=== PATIENT | female | born 2000 | race Caucasian/White ===

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

== ENCOUNTER → 2021-01-03 | Outpatient (CLI) | payer OTHER, SELFPAY ==
[2020-05-25 10:02] VITALS: BMI 22.8
[2021-01-05 20:08] LABS: Chlamydia By Nucleic Acid AMP Negative (Negative)
[2021-01-05 20:21] LABS: Gonococcus By Nucleic Acid AMP Negative (Negative)
== END | disposition home or self-care (01) ==
LOC: LABSPEC 15:31
PROVIDERS: PCP Family Medicine; Visit Provider Obstetrics & Gynecology
DX: Z11.3 Encounter for screening for infections with a predominantly sexual mode of transmission (principal)
CPT/HCPCS: 87491; 87591

== ENCOUNTER → 2021-03-19 10:00 | Outpatient (CLI) | payer OTHER, SELFPAY ==
[2020-05-25 10:02] VITALS: BMI 22.8
== END ==
PROVIDERS: PCP Family Medicine; Referring Provider Internal Medicine Pulmonary Disease; Visit Provider Internal Medicine Pulmonary Disease
DX: G47.10 Hypersomnia, unspecified (principal)
CPT/HCPCS: 95806

== ENCOUNTER 2021-06-19 15:52 | Outpatient (CLI) | payer OTHER, SELFPAY ==
[2021-06-19 17:52] LABS: Amphetamine Urine VISTA NEGATIVE (<1000 ng/mL); Barbiturate Urine VISTA NEGATIVE (< 200 ng/mL); Benzodiazepine Urine VISTA NEGATIVE (< 200 ng/mL); Cocaine Urine VISTA NEGATIVE (< 300 ng/mL); Ecstacy Urine VISTA POSITIVE (< 500 ng/mL); Methadone Urine VISTA NEGATIVE (< 300 ng/mL); PCP Urine VISTA NEGATIVE (< 25 ng/mL); THC Urine VISTA NEGATIVE (< 50 ng/mL); Vista UDS pH Range 6
== END 2021-06-19 23:59 | disposition short-term general hospital (02) ==
LOC: LAB 15:55
PROVIDERS: PCP Family Medicine; Visit Provider Internal Medicine Pulmonary Disease
DX: G47.10 Hypersomnia, unspecified (principal)
CPT/HCPCS: 80307

== ENCOUNTER 2021-06-20 16:54 | Outpatient (CLI) | payer OTHER, SELFPAY ==
[2021-06-20 18:50] LABS: Amphetamine Urine VISTA NEGATIVE (<1000 ng/mL); Barbiturate Urine VISTA NEGATIVE (< 200 ng/mL); Benzodiazepine Urine VISTA NEGATIVE (< 200 ng/mL); Cocaine Urine VISTA NEGATIVE (< 300 ng/mL); Ecstacy Urine VISTA NEGATIVE (< 500 ng/mL); Methadone Urine VISTA NEGATIVE (< 300 ng/mL); PCP Urine VISTA NEGATIVE (< 25 ng/mL); THC Urine VISTA NEGATIVE (< 50 ng/mL); Vista UDS pH Range 7
== END 2021-06-20 23:59 | disposition short-term general hospital (02) ==
LOC: LAB 16:56
PROVIDERS: PCP Family Medicine; Visit Provider Internal Medicine Pulmonary Disease
DX: G47.419 Narcolepsy without cataplexy (principal); G47.10 Hypersomnia, unspecified
CPT/HCPCS: 80307

== ENCOUNTER → 2021-12-11 | Outpatient (CLI) | payer OTHER, SELFPAY ==
[2021-12-11 10:08] LABS: Mucous, Urine 0 SEEN /hpf (<or=2+); Red Blood Cells-Urine 0 SEEN /hpf (0-5)
[2021-12-11 10:12] LABS: Color, Urine Yellow (Yellow); Glucose, Dipstick Normal (Normal); Ketone-Dipstick Negative (Negative); Leukocyte Esterase-Dipstick 100 /ul (Negative); Nitrite-Dipstick Negative (Negative); Occult Blood-Urine Negative /ul (Negative); Protein-Dipstick 15 mg/dl (Negative); Specific Gravity, Urine 1.015 (1.002-1.030); Urine Bilirubin Dipstick Negative (Negative); Urine Clarity Sl. Cloudy (Clear); Urine Urobilinogen 1 mg/dl (Normal)
[2021-12-11 10:30] LABS: Bacteria 2+ /hpf (None Seen); Squamous Epithelial Cells - UA 5-10 SEEN /hpf (5-10); White Blood Cells 5-10 SEEN /hpf (0-5)
== END | disposition home or self-care (01) ==
LOC: LABSPEC 10:04
PROVIDERS: PCP Family Medicine; Referring Provider Physician Assistant Surgical; Visit Provider Physician Assistant Surgical
DX: N39.0 Urinary tract infection, site not specified (principal)
CPT/HCPCS: 81001; 87086; 87088

== ENCOUNTER → 2022-01-09 | Outpatient (CLI) | payer OTHER, SELFPAY ==
--- NOTE | 2022-01-09 14:12 | PFTCOMP ---
COMPLETE PULMONARY FUNCTION TEST INTERPRETATION Brief HPI: Patient is a 21-year-old female, currently under the care of Dr. Topete, who presents to [facility] for complete pulmonary function tests secondary to diagnosis of mild intermittent asthma. Respiratory therapist reports good effort and reproducible results. Interpretation: Forced expiration spirometry shows no large airways obstructive ventilatory defect with an FEV1 of 95% predicted. There is no significant bronchodilator response by strict ATS criteria. Spirograms are of good quality and plateau normally. The respiratory flow volume loop shows a normal pattern. Lung volumes by body plethysmography show a normal total lung capacity at 5.27 L, 91% predicted. All other lung volumes are within normal limits. Diffusion capacity by carbon monoxide is normal at 91% predicted. The airway resistance is normal. Compared to previous pulmonary function tests from 05/16/2020, there has been no significant change. Impression: These pulmonary function tests are within normal limits
== END | disposition home or self-care (01) ==
PROVIDERS: PCP Family Medicine; Referring Provider Internal Medicine Pulmonary Disease; Visit Provider Internal Medicine Pulmonary Disease
DX: J45.20 Mild intermittent asthma, uncomplicated (principal)
CPT/HCPCS: 94060; 94726; 94729

== ENCOUNTER 2022-05-27 05:08 | Day surgery (SDC) | payer OTHER, SELFPAY ==
[2022-05-27 06:24] LABS: Internal QC Validated? YES +Cl - CLEAR BKGD; Pregnancy, Urine Negative Negative
[2022-05-27 06:35] VITALS: BP 103/73; PULSE 70; RESP 18; TEMP 36.7; O2SAT 100; BMI 22.2
[2022-05-27] MEDS: Lactated Ringers 1,000 ML 15 ML IV ×2 (06:45→08:33)
[2022-05-27] MEDS: Scopolamine 1mg/72hr Patch 1 PATCH TD (06:48)
--- NOTE | 2022-05-27 07:00 | PCM.HP.BLA ---
History and Physical Date of Admission: 05/27/22 Chief complaint: Pelvic pain History present illness: 21-year-old arrives for diagnostic laparoscopy, left ovarian cystectomy, possible left oophorectomy for pelvic pain. No medical changes since last seen. All questions answered and consent signed. Obstetric history: G0 Past medical history: None Medications: None Past surgical history: None Allergies: No known drug allergies Family history: Denies history DVT or PE Social history: Denies smoking, alcohol use, drug use Review of systems: Besides above pertinent positives a full review of systems was performed and found to be negative Physical exam: Vitals: Blood pressure 103/73 pulse 70 respiratory rate 18 temperature 98.1 ?F SPO2 100% on room air General: Normal-appearing no acute distress HEENT: Normocephalic/atraumatic no cervical of adenopathy Cardiac/respiratory: No use accessory muscles, nonlabored breathing Abdomen: Soft, nontender, nondistended Extremities: No peripheral edema normal peripheral pulses Psych: Normal affect normal demeanor nonpressured speech Labs: Urine test negative Assessment plan: 21-year-old arrives for diagnostic laparoscopy left ovarian cystectomy possible left oophorectomy for pelvic pain. Patient understands risk of the procedure include but are not limited to visceral or vascular injury, prolonged hospitalization, blood loss need for transfusion, reoperation. Patient stated understanding and wished to proceed. All questions were answered and consent was signed.
--- NOTE | 2022-05-27 08:05 | DCINST_ITS ---
Discharge Instructions Diet Discharge Diet: No restrictions Activity Discharge Activity: Return to Normal Activity, May Drive and May Shower May resume sexual activity in: 4-6 weeks Lifting Restrictions: No lifting over 25 pounds for 2 to 3 weeks Dressing / Incision Call your doctor if your incision/area has: Continuous Slow Oozing and Foul Smelling Discharge Call your doctor if you observe: Fever of 101 or Higher, Shortness of breath and Chest pain Follow Up Care Please Follow Up With: Jericho Clark MD When: 2 weeks postoperatively Test Results: Test results from this visit will be discussed in further detail at your follow- up appointment, if applicable. Discharge Plan Admission Attending Provider: Jericho Clark Primary Care Provider: Shelly Topete Discharge Orders/Prescriptions Prescriptions: No Action bupropion HCl 100 mg tablet 150 mg PO DAILY norethindrone ac-eth estradiol [ ()] 1.5-30 mg-mcg Tablet 1 tab PO DAILY Dexatroamphetamin 30 mg PO/SL DAILY escitalopram oxalate [Lexapro] 20 mg tablet 20 mg PO DAILY Referrals / Follow Up: Shelly Topete MD [Primary Care Provider] - Disposition Disposition (needs filled in before D/C Order can be placed): Home, Self Care
--- NOTE | 2022-05-27 08:06 | PCM.OPRPT ---
Report of Operation Date of Procedure: 05/27/22 Pre-Operative Diagnosis: Pelvic pain Post-Operative Diagnosis: Pelvic Surgery/Procedure Performed:: Diagnostic laparoscopy Description of Surgical Findings:: Surgeon: Jericho Clark MD Anesthesia: General EBL: Minimal Urine output: 50 cc IV fluids: 1000 cc Complications: None Specimen: None Findings: Normal uterus, tubes, and ovaries. Appendix visualized and no pathology noted. Omentum and upper abdomen with no pathology noted Consent: Patient with pelvic pain elects for diagnostic laparoscopy possible left ovarian cystectomy possible left oophorectomy. Patient understands the risks of the procedure include but are not limited to visceral or vascular injury, prolonged hospitalization, blood loss need for transfusion, reoperation. Patient state understanding wish to proceed. All questions were answered and consent was signed. Procedure: Patient was brought back to the OR where general anesthesia was found to be adequate. Patient was prepared and draped in a dorsolithotomy position with yellowfin stirrups. A weighted speculum was placed in the posterior aspect of vagina and cervical dilators were used to dilate the cervix. Uterine manipulator was placed. Varies needle was inserted the umbilicus and water safety test was passed. Abdomen was insufflated. 5 mm midline supraumbilical trocar was inserted under direct visualization. Laparoscope was inserted and above findings were noted. Left lower quadrant 5 mm trocar was inserted under direct visualization. Using atraumatic grasper bilateral fallopian tubes bilateral ovaries were visualized. Bilateral ureters visualized. Posterior cul-de-sac with no pathology noted. Upper abdomen and appendix visualized with above findings noted. Good hemostasis was noted. Abdomen was desufflated and trochars removed under direct visualization. Good hemostasis was noted. Trocar sites were closed in a subcutaneous fashion. Good hemostasis was noted. All counts were correct x2. Patient tolerated procedure well and was brought to recovery in stable condition.
[2022-05-27 08:16] VITALS: BP 103/73; BP 126/62; PULSE 124; RESP 16; TEMP 36.4; O2SAT 100
[2022-05-27 08:30] VITALS: BP 103/73; BP 113/74; PULSE 94; RESP 16; O2SAT 100
[2022-05-27] MEDS: Ketorolac 30 MG/ML Syringe IV (08:32)
[2022-05-27 08:45] VITALS: BP 103/73; BP 111/71; PULSE 79; RESP 14; O2SAT 100
[2022-05-27 09:00] VITALS: BP 103/73; BP 116/76; PULSE 94; RESP 14; TEMP 36.9; O2SAT 100
[2022-05-27] MEDS: Acetaminophen 500 MG Tablet 1000 MG PO (09:37)
[2022-05-27 09:53] VITALS: BP 103/73
== END 2022-05-27 09:56 | disposition home or self-care (01) ==
LOC: SDC 05:09 → AC 05:12
PROVIDERS: Anesthesiology; PCP Family Medicine; Referring Provider Obstetrics & Gynecology; Visit Provider Obstetrics & Gynecology
PROC: (CPT 49320; principal; 2022-05-27 07:15)
DX: R10.2 Pelvic and perineal pain (principal); F41.9 Anxiety disorder, unspecified; F32.9 Major depressive disorder, single episode, unspecified; G47.419 Narcolepsy without cataplexy
CPT/HCPCS: 49320; 00840; 81025; J7120; J2405

== ENCOUNTER → 2022-10-18 | Outpatient (CLI) | payer OTHER, SELFPAY ==
[2022-10-18 11:35] LABS: Erythrocyte Sedimentation Rate 4 mm/hr (0-30)
[2022-10-18 11:58] LABS: CRP < 2.90 mg/L (0.0-3.0); Ferritin 7 ng/mL (8-252); Free T3 2.5 pg/mL (2.18-3.98); LDH 167 U/L (84-246); T4 Free Direct 0.88 ng/dL (0.76-1.46); Thyroid Stim Hormone (TSH) 1.02 uIU/mL (0.358-3.74)
[2022-10-21 13:07] LABS: Anti-Centromere B Ab <0.2 AI (0.0-0.9); Anti-Chromatin <0.2 AI (0.0-0.9); Anti-Jo <0.2 AI (0.0-0.9); Anti-Scleroderma-70 AB <0.2 AI (0.0-0.9); Anti-dsDNA Ab <1 IU/mL (0-9); RNP Ab 0.6 AI (0.0-0.9); SJOGREN'S Anti-SS-A test < 0.2 AI (0.0-0.9); SJOGREN'S Anti-SS-B test < 0.2 AI (0.0-0.9); Smith Ab <0.2 AI (0.0-0.9)
[2022-10-21 14:08] LABS: Endomysial Antibody IgA Negative (Negative); Immunoglobulin A 115 mg/dL (87-352); t-Transglutaminase IgA <2 U/mL (0-3)
[2022-10-24 16:09] LABS: Albumin 3.2 g/dL (2.9-4.4); Alpha-1-Globulins 0.4 g/dL (0.0-0.4); Alpha-2-Globulins 0.8 g/dL (0.4-1.0); Cytoplasmic Ab (C-ANCA) <1:20 titer (Neg:<1:20); Immunoglobulin A 115 mg/dL (87-352); Immunoglobulin E 36 IU/mL (6-495); Immunoglobulin G 957 mg/dL (586-1602); Immunoglobulin M 136 mg/dL (26-217); PROEL- TOTAL PROTEIN 6.5 g/dL (6.0-8.5); Perinuclear Ab (P-ANCA) <1:20 titer (Neg:<1:20)
== END | disposition home or self-care (01) ==
PROVIDERS: PCP Family Medicine; Referring Provider Internal Medicine Gastroenterology; Visit Provider Internal Medicine Gastroenterology
DX: K21.9 Gastro-esophageal reflux disease without esophagitis (principal); K59.00 Constipation, unspecified
CPT/HCPCS: 36415; 82728; 82784; 82785; 83516; 83615; 84165; 84439; 84443; 84481; 85652; 86140; 86225; 86235; 86255; 86256; 86334

== ENCOUNTER → 2022-11-05 | Outpatient (CLI) | payer OTHER, SELFPAY ==
--- NOTE | 2022-11-05 12:18 | RAD_ITS ---
INDICATION: SITZ marker EXAMINATION/TECHNIQUE: X-RAY - XR Abdomen 1 View COMPARISON: FINDINGS: BOWEL GAS PATTERN: Non-obstructive. No bowel or stomach distention. FREE AIR: Not assessed on a single supine view. ORGANOMEGALY: Not seen. CALCIFICATIONS: No abnormal calcifications observed. LOWER CHEST: No acute pathology. BONES AND SOFT TISSUES: No acute pathology. RAD/Abdomen Single View IMPRESSION: Non-obstructive bowel gas pattern. No retained Sitz marker. Electronically Signed: Mae Grullon MD at 12:42 EDT ,
== END | disposition home or self-care (01) ==
LOC: RAD 12:17
PROVIDERS: PCP Family Medicine; Referring Provider Internal Medicine Gastroenterology; Visit Provider Internal Medicine Gastroenterology
DX: K59.00 Constipation, unspecified (principal)
CPT/HCPCS: 74018

== ENCOUNTER → 2022-11-07 | Outpatient (CLI) | payer OTHER, SELFPAY ==
--- NOTE | 2022-11-07 15:25 | RAD_ITS ---
EXAM: XR ABDOMEN, 1 VIEW CLINICAL INDICATION: SITZ second TECHNIQUE: Frontal supine view of the abdomen/pelvis. COMPARISON: 11/05/2022. FINDINGS: LOWER THORAX: No acute pathology. GASTROINTESTINAL TRACT: Unremarkable. Non-obstructive. No bowel or stomach distention. ORGANS: Unremarkable as visualized. No organomegaly. No abnormal calcifications. BONES/JOINTS: No acute pathology. SOFT TISSUES: No acute pathology. OTHER FINDINGS: No SITZ marker identified. RAD/Abdomen Single View IMPRESSION: No SITZ marker identified. No change since previous exam. Electronically Signed: Minh Jeff MD at 5:28 EDT ,
== END | disposition home or self-care (01) ==
LOC: RAD 15:21
PROVIDERS: PCP Family Medicine; Referring Provider Internal Medicine Gastroenterology; Visit Provider Internal Medicine Gastroenterology
DX: K59.00 Constipation, unspecified (principal)
CPT/HCPCS: 74018

== ENCOUNTER → 2022-11-13 | Outpatient (CLI) | payer OTHER, SELFPAY ==
--- NOTE | 2022-11-13 07:36 | NM_ITS ---
CLINICAL: 21-year-old female with history of clinical gastroparesis. SEMI-SOLID PHASE 99m Tc SULFUR COLLOID GASTRIC EMPTYING STUDY COMPARISON: None available FINDINGS: The patient was administered 1.0 mCi of 99m Tc sulfur colloid mixed with oatmeal and consumed per os. Image acquisitions in the anterior-posterior projections were obtained for 60 minutes. There is prompt visualization of the stomach. There is no gastroesophageal reflux identified. The T ? raw data emptying was calculated to be 18.55 minutes, (Normal: 12-56 minutes). NM/Gastric Emptying Study IMPRESSION: 1. NORMAL 99m Tc sulfur colloid semi-solid phase (oatmeal) gastric emptying imaging examination. A. There is normal and preserved semi-solid phase gastric emptying compared to normal controls. (Sharon et al, J Nucl Med Tech 38: 186, 2010). Electronically Signed: Luis Antoine, at 21:07 EDT ,
== END | disposition home or self-care (01) ==
LOC: NM 07:36
PROVIDERS: PCP Family Medicine; Referring Provider Internal Medicine Gastroenterology; Visit Provider Internal Medicine Gastroenterology
DX: K21.9 Gastro-esophageal reflux disease without esophagitis (principal); K59.00 Constipation, unspecified
CPT/HCPCS: 78264; A9541

== ENCOUNTER → 2024-08-19 | Outpatient (CLI) | payer OTHER, SELFPAY | END | disposition home or self-care (01) | PROVIDERS: PCP Family Medicine; Referring Provider Physician Assistant Surgical; Visit Provider Physician Assistant Surgical | DX: J02.9 Acute pharyngitis, unspecified (principal) | CPT/HCPCS: 87081 ==

== ENCOUNTER 2025-01-01 20:16 | Emergency (ER) | payer OTHER, SELFPAY ==
[2025-01-01 20:17] VITALS: BP 120/79; PULSE 88; RESP 14; TEMP 37; O2SAT 100; BMI 24.9
--- OUTSIDE RECORDS SUMMARY | 2025-01-01 21:00 | XMS RPT_ITS | CCD ---
Author Organization [facility] Care Team Providers Care Car Spotter Name Role Phone Selena Lau LPN Unavailable Unavailab Yvonne Mayen LPN Unavailable Unavailable Jaime Rodríguez Unavailable [phone] Selena Lua LPN Unavailable Unavailab KELLI Rodriguez Attending Unavailable STRONG, VERNON H Referring Unavailable STRONG, VERNON H Primary Care Unavailable Selena Lau LPN Unavailable UnavailVernon Zavaleta MD Primary Care Provider Dr. Shelly Topete Primary Care Provider Dr. Shelly Topete Referring Provider [phone] MARIA M Quezada Attending Provider Dr. Fernando Angel V Referring Provider [phone] Dr. Fernando Angel V Other Provider Dr. Dario Doss Attending Provider [phone] FRANCHESKA BRIGGS Attending Unavailable STRONG, VERNON H Primary Care Unavailable BRIGGSFRANCHESKA VARGAS Attending Unavailable STRONG, VERNON H Primary Care Unavailable FRANCHESKA BRIGGS Attending Unavailable STRONG, VERNON H Primary Care Unavailable STRONG, VERNON H Primary Care Unavailable FRANCHESKA BRIGGS Attending Unavailable STRONG, VERNON H Primary Care Unavailable Dr. Shelly Topete Primary Care Provider [phone] Dr. Shelly Topete Referring Provider [phone] MARIA M Quezada Attending Provider Reina, Dr. Rocha Attending Provider GIUSEPPE GONZALEZ MD Primary Care Physician XIOMARA MADRIGALN-GLORIA, SARAHY Attending Unavail able GIUSEPPE GONZALEZ MD Primary Care Unavailable Ignacio Quezada Attending Unavailable Ignacio Quezada Referring Unavailable Shelly Topete Primary Care Unavailable Yoselyn Shelly Referring Unavailable Ignacio Quezada Attending Unavailable Yoselyn Shelly Primary Care Unavailable Yoselyn Shelly Referring Unavailable Aj Huang Attending Unavailable [facility] Shelly Primary Care Unavailable [facility] Shelly Referring Unavailable FriendAj Attending [facility]available [facility] Unavailable Yoselyn YANES, Dr. Bravo Primary Care Provider Dr. Shelly Topete MD Referring Provider [phone] Reina DODr. Rocha Attending Provider Ignaico Quezada Attending Provider Ignacio Quezada Referring Provider [phone] Allergies Allergy Classification Reported Allergen(s) Allergy Type Date of Onset Reaction(s) Facility (4 sources) Seasonal allergy; Translations: [SEASONAL ALLERGIES] Allergy to substance 5 Other: See Comments [facility] Medications Current Medications Medication Drug Class(es) Dates Sig (Normalized) Sig (Original) 24 hr buPROPion hydrochloride 150 mg extended release oral tablet (5 sources) Aminoketone Start: 07-21-2023 take 1 tablet by mouth every hour, then take 1 tablet by mouth every twenty-four hours buPROPion 150 mg/24 hours (XL) oral tablet, extended release Dose : 150 mg = 1 tab(s), Oral, q24h, # 30 tab(s), 0 Refill(s) Start Date: 07/21/23 Status: Ordered Start: 01-03-2020 End: 06-08-2024 Bupropion Hcl 100 mg tablet Discontinued 150 mg PO DAILY January 03, 2020 12:00am June 08, 2024 9:42am Start: 01-03-2020 take 150 mg by mouth once daily Bupropion Hcl Active 150 MG PO DAILY January 03, 2020 12:00am Start: 01-03-2020 take 100 mg by mouth twice daily Bupropion Hcl Active 100 MG PO TWICE A DAY January 03, 2020 12:00am dextroamphetamine sulfate 15 mg extended release oral capsule (1 source) Central Nervous System Stimulant Start: 07-21-2023 dextroamphetamine 15 mg oral capsule, extended release Dose : 15 mg = 1 cap(s), Oral, qAM, 0 Refill(s) Start Date: 07/21/23 Status: Ordered escitalopram 20 mg oral tablet (8 sources) Serotonin Reuptake Inhibitor Start: 07-06-2021 End: 06-08-2024 escitalopram 20 mg oral tablet Dose : 20 mg = 1 tab(s), Oral, Daily, 0 Refill(s) Start Date: 07/21/23 Status: Ordered Comment on above: Take 20 mg by mouth once daily. ethinyl estradiol 0.03 mg / ferrous fumarate 75 mg / norethindrone 1.5 mg oral tablet (2 sources) Estrogen Start: 07-21-2023 take 1 tablet by mouth once daily .11/05 oral tablet Dose = 1 tab(s), Oral, qDay, # 84 tab(s), 0 Refill(s) Start Date: 07/21/23 Status: Ordered Start: 08-10-2018 Norethindrone- E.Estradiol-Iron Active 1 EACH PO DAILY August 10, 2018 1:00am lactulose 667 mg/ml oral solution (1 source) Osmotic Laxative Start: 07-06-2021 take 1 mL by mouth once daily Lactulose Active 15 ML PO DAILY July 06, 2021 1:00am metroNIDAZOLE 500 mg oral tablet (1 source) Nitroimidazole Antimicrobial Start: 07-22-2023 End: 07-29-2023 metroNIDAZOLE 500 mg oral tablet Dose : 500 mg = 1 tab(s), Oral, BID, X 7 day(s), # 14 tab(s), 0 Refill(s), 07/29/23 4:46:00 PM EST, [facility]acy: [id number], Bacterial vaginitis, 174, cm, 07/21/23 8:31:00 EST, Height, 64.8, kg, 07/21/23 8:31:00 EST, Dosing Weight Start Date: 07/22/23 Stop Date: 07/29/23 Status: Ordered modafinil 100 mg oral tablet (1 source) Sympathomimetic-lik e Agent Start: 07-06-2021 take 100 mg by mouth once daily Modafinil Active 100 MG PO DAILY July 06, 2021 1:00am [place] (Nk) (1 source) Start: 08-19-2024 [place] (Nk) Active August 19, 2024 12:00am phenazopyridine hydrochloride 100 mg oral tablet (1 source) Start: 12-11-2021 take 1 tablet by mouth three times daily at mealtime Phenazopyridine (Pyridium) 100 mg tablet Active 100 MG PO THREE TIMES A DAY December 11, 2021 12:00am administer with a full glass of water after each meal Completed/Discontinued Medications Medication Drug Class(es) Dates Sig (Normalized) Sig (Original) [id number] 200 actuat albuterol 0.09 mg/actuat metered dose inhaler (4 sources) beta2-Adrenergic Agonist Start: 06-14-2019 take 2 puff(s) by inhalation every four hours as needed for wheezing albuterol HFA (PROAIR HFA) 90 mcg/actuation inhaler Indications: Mild persistent asthma without complication Inhale 2 Puffs as instructed every 4 hours as needed for Wheezing/Shortness of Breath. 2 Inhaler 0 06/14/2019 Active Start: 09-28-2015 take 1 puff(s) by in halation every four hours as needed Albuterol Sulfate Active 1 - 2 PUFF INHALATION EVERY 4 HOURS NEEDED September 28, 2015 12:00am Comment on above: Inhale 2 Puffs as in structed every 4 hours as needed for Wheezing/Shortness of Breath. amitriptyline hydrochloride 25 mg oral tablet (4 sources) Tricyclic Antidepressant Start : 09-27 End: 07-15 take 1 tablet by mouth at bedtime Amitriptyline 25 MG tablet Discontinued 25 mg PO AT BEDTIME September 28, 2015 12:00am July 15, 2017 2:27pm amoxicillin 500 mg oral tablet (4 sources) Penicillin-class Antibacterial Start : 05-30 End: 06-09 take 1 tablet by mouth twice daily Amoxicillin 500 mg tablet Discontinued 500 mg PO TWICE A DAY 28 03May 30, 2019 1:00am June 08, 2019 1:00am June 09, 2019 1:07am amoxicillin 875 mg / clavulanate 125 mg oral tablet (1 source) Penicillin-class Antibacterial Start : 06-16 End: 06-08 Amoxicillin-Pot Clavulanate 875-125 mg tablet Discontinued 1 {tbl} PO TWICE A DAY June 16, 2023 1:00am June 08, 2024 9:42am cephalexin 500 mg oral capsule (4 sources) Cephalosporin Antibacterial Start : 07-25 End: 07-15 take 1 capsule by mouth every six hours Cephalexin 500 MG capsule Discontinued 500 mg PO EVERY 6 HOURS FOR 5 DAYS July 25, 2016 1:00am July 15, 2017 2:27pm Dexatroamphetamin (3 sources) Start : 05-20 End: 06-08 take 30 mg by mouth once daily Dexatroamphetamin Discontinued 30 mg SL/PO DAILY May 20, 2022 1:00am June 08, 2024 9:42am Start: 05-20-2022 take 30 mg by mouth once daily Dexatroamphetamin Active 30 MG SL/PO DAILY May 20, 2022 1:00am Start: 05-20-2022 take 30 mg by mouth once daily Dexatroamphetamin Active 30 MG SL/PO DAILY May 20, 2022 12:00am dicyclomine hydrochloride 10 mg oral capsule (1 source) Anticholinergic Start: 08-13-2023 End: 06-08-2024 take 1 capsule by mouth twice daily as needed for pain Dicyclomine 10 mg capsule Discontinued 10 mg PO TWICE A DAY as needed for abdominal pain August 13, 2023 1:00am June 08, 2024 9:42am ethinyl estradiol 0.03 mg / norethindrone acetate 1.5 mg oral tablet (6 sources) Estrogen Start: 05-20-2022 End: 06-08-2024 Norethindrone Ac-Eth Estradiol (Junel .11/05 (21)) 1.5-30 mg-mcg Tablet Discontinued 1 {tbl} PO DAILY May 20, 2022 1:00am June 08, 2024 9:42am Start: 05-25-2021 take 1 tablet by halima once daily Norethindrone Acet-Ethinyl Est (MICROGESTIN ) 1.5-30 mg-mcg Indications: Surveillance for control, oral contraceptives TAKE 1 TABLET BY MOUTH ONCE DAILY DIRECTED 84 tablet 0 05/25/2021 Active Comment on above: TAKE 1 TABLET BY HALIMA ONCE DAILY DIRECTED ferrous sulfate 325 mg oral tablet (4 sources) Start: 01-03-20 End: 07-06-19 take 1 tablet by mouth once daily Ferrous Sulfate 325 mg (65 mg iron) tablet Discontinued 325 mg PO DAILY January 03, 2020 12:00am July 06, 2021 5:05pm fluconazole 150 mg oral tablet (1 source) Azole Antifungal Start: 07-22-19 End: 07-23-19 Diflucan 150 mg oral tablet Dose : 150 mg = 1 tab(s), Oral, qDay, # 2 tab(s), 0 Refill(s), [facility]acy: [id number], Vaginal candidosis, 174, cm, 07/21/23 8:31:00 EST, Height, 64.8, kg, 07/21/23 8:31:00 EST, Dosing Weight Start Date: 07/22/23 Stop Date: 07/23/23 Status: Ordered 120 actuat fluticasone propionate 0.11 mg/actuat metered dose inhaler (11 sources) Corticosteroid Start: 08-11-19 End: 07-06-19 Fluticasone Propionate 1 INHALER inhaler Discontinued 2 NMA INHALATION TWICE A DAY August 10, 2018 1:00am July 06, 2021 5:06pm Start: 08-10-2018 End: 07-06-2021 take 1 puff(s) by inhalation twice daily Fluticasone Propionate Discontinued 2 PUFF INHALATION TWICE A DAY August 10, 2018 1:00am July 06, 2021 5:06pm Start: 07-03-2018 take 1 puff(s) by in halation twice daily fluticasone (FLOVENT HFA) 110 mcg/actuation inhaler Indications: Mild persistent asthma without complication Inhale 1 Puff as instructed twice daily. Use the spacer as directed. 1 Inhaler 11 07/03/2018 Active Start: 09-28-2015 End: 07-15-2017 Fluticasone Propionate 1 INH ALER inhaler Discontinued 1 NMA INHALATION TWICE A DAY September 28, 2015 12:00am July 15, 2017 2:27pm Start: 09-28-2015 End: 07-15-2017 take 1 puff(s) by inhalation twice daily Fluticasone Propionate Discontinued 1 PUFF INHALATION TWICE A DAY September 28, 2015 12:00am July 15, 2017 2:27pm Comment on above: Inhale 1 Puff as ins tructed twice daily. Use the spacer as directed. linaclotide 0.145 mg oral capsule (1 source) Guanylate Cyclase-C Agonist Start : 11-19 End: 08-12 take 1 capsule by mouth once daily Linaclotide (Linzess) 145 mcg capsule Discontinued 145 ug PO DAILY November 19, 2022 12:00am August 13, 2023 5:03pm loratadine 10 mg oral tablet (4 sources) Start : 09-27 End: 07-15 take 1 tablet by mouth once daily Loratadine 10 MG tablet Discontinued 10 mg PO DAILY September 28, 2015 12:00am July 15, 2017 2:27pm lubiprostone 0.008 mg oral capsule (3 sources) Chloride Channel Activator Start : 08-12 End: 06-08 take 1 capsule by mouth twice daily Lubiprostone (Amitiza) 8 mcg capsule Discontinued 8 ug PO TWICE A DAY January 30, 2024 9:24am June 08, 2024 9:42am methylPREDNISolone 4 mg oral tablet (1 source) Corticosteroid Start : 06-16 End: 06-08 take 1 tablet by mouth once Methylprednisolone (Medrol (Bryce)) 4 mg tablets,dose pack Discontinued 0 PO per package directions June 16, 2023 1:00am June 08, 2024 9:42am PO PER PKG DIR nitrofurantoin, macrocrystals 25 mg / nitrofurantoin, monohydrate 75 mg oral capsule (8 sources) Nitrofuran Antibacterial Start : 12-11 End: 12-18 take 1 capsule by mouth every twelve hours at mealtime Nitrofurantoin Monohyd/M-Cryst 100 mg capsule Discontinued 1 NMA PO Q12H 14 December 11, 2021 12:00am December 17, 2021 12:00am December 18, 2021 12:03am administer with a meal/food; swallow whole; do not open, crush, dissolve , or chew Start: 03-02-2018 End: 03-09-2018 take 1 capsule by mouth every twelve hours at mealtime Nitrofurantoin Monohyd/M-Cryst 100 mg capsule Discontinued 1 NMA PO Q12H 14 March 02, 2018 12:00am March 08, 2018 12:00am March 09, 2018 12:10am administer with a meal/food; swallow whole; do not open, crush, dissolve , or chew oseltamivir 75 mg oral capsule (4 sources) Neuraminidase Inhibitor Start: 07-15-2017 End: 07-20-2017 take 1 capsule by mouth twice daily Oseltamivir (Tamiflu) 75 mg capsule Discontinued 75 mg PO TWICE A DAY 10 July 15, 2017 1:00am July 19, 2017 1:00am July 20, 2017 1:06am polyethylene glycol [id number] [id number] mg / potassium chloride 2970 mg / sodium bicarbonate 6740 mg / sodium chloride 5860 mg / sodium sulfate 87159 mg powder for oral solution (1 source) Osmotic Laxative Start: 08-13-2023 End: 06-08-2024 Peg 3350-Electrolytes (Golytely) 236-22.74-6.74 -5.86 gram recon soln Discontinued 240 mL PO Q10M 4000 August 13, 2023 1:00am June 08, 2024 9:42am until fecal effluent is clear predniSONE 10 mg oral tablet (2 sources) Corticosteroid Start: 01-13-2017 End: 01-25-2017 PREDNISONE 10 MG TABS 4 tablets daily for 3 days, then 3 tablest daily for 3 days, then 2 tablets daily for 3 days, then 1 tablet daily for 3 days. PREDNISONE [id number] Ignacio FRANZ rizatriptan 10 mg oral tablet (3 sources) Serotonin-1b and Serotonin-1d Receptor Agonist Start: 06-14-2019 take 2 tablets by mouth every two hours, then take 4 tablets by mouth once daily, then take 2 tablets by mouth once daily, then take 8 tablets by mouth every month rizatriptan (MAXALT) 10 mg tablet For a severe migraine take Maxalt 10 mg plus Aleve 220 mg by mouth. If no better in 2 hours take a second Maxalt 10 mg plus one extra strength Tylenol. Maxalt: May take 2 doses of Maxalt in one day, 4 doses and 2 consecutive days, no more than 8 doses per month. 10 tablet 0 06/14/2019 Active Comment on above: For a severe migrain e take Maxalt 10 mg plus Aleve 220 mg by mouth. If no better in 2 hours take a second Maxalt 10 mg plus one extra strength Tylenol. Maxalt: May take 2 doses of Maxalt in one day, 4 doses and 2 consecutive days, no more than 8 doses per month. Problems Active Problems Problem Classification Problem Date Documented Da te Episodic/Chronic Allergic reactions (2 sources) Atopic dermatitis; Translations: [Atopic dermatitis, unspecified] Onset: 7 01-13-2017 Chronic Asthma (7 sources) Mild persistent asthma; Translations: [Mild persistent asthma, uncomplicated] Onset: 3 05-27-2013 Chronic Esophageal disorders (4 sources) Gastroesophageal reflux disease; Translations: [Gastro-esophageal reflux disease without esophagitis] 10-18-2022 Chronic Esophageal disorders (1 source) Esophageal disorders; Translations: [Gastro-esophageal reflux disease with esophagitis, without bleeding] Onset: 4 Headache; including migraine (3 sources) Transformed migraine; Translations: [Chronic migraine without aura, not intractable, without status migrainosus] Onset: 6 09-08-2015 Chronic Immunizations and screening for infectious disease (5 sources) Contact with and (suspected) exposure to other viral communicable diseases; Translations: [Contact with or suspected exposure to other viral communicable disease] Onset: 4 10-15-2022 Episodic Influenza (4 sources) Influenza due to Influenza A virus; Translations: [Influenza due to other identified influenza virus with other respiratory manifestations] 01-03-2020 Episodic Lymphadenitis (1 source) Lymphadenitis; Translations: [Nonspecific lymphadenitis, unspecified] 12-31-2022 Episodic Miscellaneous mental health disorders (7 sources) Psychologic dyspareunia; Translations: [Dyspareunia not due to a substance or known physiological condition] Onset: 2 Chronic Mood disorders (3 sources) Moderate major depression, single episode; Translations: [Major depressive disorder, single episode, moderate] Onset: 9 09-21-2018 Chronic Other connective tissue disease (6 sources) Increased muscle tone; Translations: [Other specified disorders of muscle] Onset: 2 Episodic Other gastrointestinal disorders (3 sources) Constipation; Translations: [Constipation, unspecified] 10-18-2022 Episodic Other gastrointestinal disorders (1 source) Constipation, unspecified; Translations: [Constipation, unspecified] 10-18-2022 Episodic Other screening for suspected conditions (not mental disorders or infectious disease) (4 sources) Encounter for screening for malignant neoplasm of cervix; Translations: [Encounter for other screening for malignant neoplasm of breast] Onset: 4 Episodic Other upper respiratory infections (18 sources) Upper respiratory infection; Translations: [Acute upper respiratory infection, unspecified] Onset: 7 07-16-2016 Episodic Sprains and strains (9 sources) Unspecified sprain of left wrist, initial encounter; Translations: [Sprain of wrist] Onset: 7 11-27-2016 Episodic Superficial injury; contusion (4 sources) Contusion of left wrist; Translations: [Contusion of left wrist, initial encounter] 10-25-2015 Episodic Urinary tract infections (13 sources) Urinary tract infectious disease; Translations: [Urinary tract infection, site not specified] Episodic Past or Other Problems Problem Classification Problem Date Documented Da te Episodic/Chronic Allergic reactions (2 sources) Contact dermatitis due to poison no; Translations: [Allergic contact dermatitis due to plants, except food] Onset: 01-13-2017 01-13-2017 Episodic Fracture of upper limb (5 sources) Nondisplaced fracture of distal phalanx of right middle finger, initial encounter for closed fracture; Translations: [Nondisplaced fracture of distal phalanx of right middle finger, initial encounter for closed fracture] Onset: 07-29-2016 08-12-2016 Episodic Other connective tissue disease (5 sources) Pain in finger; Translations: [Pain in right finger(s)] Onset: 07-29-2016 08-12-2016 Episodic Other connective tissue disease (1 source) Other specified disorders of muscle; Translations: [Muscle tightness] Onset: 11-20-2021 Episodic Other gastrointestinal disorders (1 source) Slow transit constipation; Translations: [Slow transit constipation] Onset: 10-14-2023 Episodic Other upper respiratory disease (5 sources) Pain in throat; Translations: [Acute pharyngitis, unspecified] Onset: 07-16-2016 07-16-2016 Episodic Unclassified (5 sources) Pain; Translations: [Pain, unspecified] Onset: 11-27-2016 11-27-2016 Episodic Results Test Name Value Interpretation Reference Range Facility Culture, R/O Strep Aon 08-21 CUSTREPA No Group A Beta Streptococcus isolated. Normal [facility] Comment on above: Performed By: #### M 100.010 #### [facility] [address] [place], [address] Group A Strep cultureOrdered By: Ignacio Tomas on 08-19-2024 S. pyogenes Ag Ql (Throat) No Group A Be ta Streptococcus isolated. [facility] S. pyogenes Ag IA.rapid Ql ( Throat)Ordered By: Ignacio Tomas on 08-19-2024 S. pyogenes Ag IA Ql (Unsp spec) Negative [facility] Visit Reporton 0 08-19-2024 Urgent Care Visit Report [facility] [address] [facility], [address] [place] [address] OFFICE VISIT Date of Service: 08/19/24 MR#: [id number] Acct: [id number] Name: SOSA OLIVER Rep #: [id number] : 2000 Provider: MARIA M Patel Age/Sex: 23/F Location: [facility] Status: Signed Intake Vital Signs 06/16/23 16:14 08/19/24 07:20 Height 5 ft 7 in BP 104/62 Blood Pressure Location Lt brachial Position Sitting Respiration 14 Pulse 79 Pulse Source NIBP Temp 98.0 F Temp Source Oral Pulse Oximetry (%) 99 Oxygen Delivery Method room air Intake Visit Reasons: CONCERN FOR STREP THROAT Chief Complaint: sore throat, YOUNG Visitor Services Technician Required: No Is patient in pain?: Yes Allergies No Known Allergies Allergy (Verified 08/19/24 07:20) Medications ???Medication ???Instructions ???Recorded ???Confirmed ???Type NK 08/19/24 08/19/24 History Is last menstrual period known: No Post menopausal: No Patient : No Have you fallen in the past year?: No Nurse's Note: sore throat, YOUNG since last noc. states mother told her tonsils were enlarged with "pus pockets". concern for strep. denies fever, cough, congestion PFSH Medical History Anemia Anxiety Asthma Depression Influenza A Loss of consciousness Migraine headache Narcolepsy Non-smoker Pelvic pain Pharyngitis Postauricular lymphadenitis URI (upper respiratory infection) Urinary tract infection Wears glasses Surgical History H/O laparoscopy No pertinent past surgical history Family History Other No pertinent family history Social History Smoking Status: Never smoker alcohol intake: never HPI HPI Chief Complaint: sore throat, YOUNG Details: SOSA OLIVER, is a 23 F who presents to the office today for complaint sore throat and headache starting last night. Patient states she has a history of strep and is requesting a strep test in the office as well as [place] if negative. She denies fever, chills, sweats. No hemoptysis, shortness of breath appropriately. No loss of taste or smell. No other associated symptoms or alleviating/aggravatin g factors. ROS Const Constitutional: No other (As above) Exam Const General: cooperative and healthy appearing [facility] Head: normal to inspection Ears: hearing grossly normal bilaterally, TM's normal bilaterally and EAC's normal Nose: external nose normal and nasal discharge clear Mouth: oral mucosae normal Throat: abnormal tonsil bilaterally Resp Effort Inspection: normal respiratory effort Auscultation: Bilateral: Clear to Auscultation Cardio Palpation: normal PMI Rate: regular rate Rhythm: regular rhythm Neuro General: patient alert and CN's II-XI intact bilaterally Psych Appearance: grossly normal Mental Status: mental status grossly normal Results POC Amy Rapid Strep POC Amy Rapid Strep Negative Last Edit by Ramonita Echavarria on 08/19/24 07:34 Coding Level of Care Code Off vis,est,level 3 Diagnoses Acute pharyngitis J02.9 Assessment and Plan Assessment and Plan (1) Acute pharyngitis: Status: Acute Orders: Orders POC Amy Rapid Strep A Today Culture, R/O Strep A Today J02.9 - Acute pharyngitis, unspecified Plan Patient tested negative for strep in the office today. Swab sent for rule out strep. Encouraged to get plenty of rest, drink lots of clear liquids, and use Tylenol or Ibuprofen (unless contraindicated) for fever and comfort. Patient also educated on other symptomatic management techniques. To be seen in 7-10 days if no improvement; sooner if worsening of symptoms. Clinical Quality Measures Falls Risk Screening/Assistive Devices Have you fallen in the past year?: No 08/19/24 0756 Date Ignacio Valerio Signature: Date (if applicable) CC: Normal [facility] Visit Repor ton 06-08-2024 Gastroenterology Visit Report [facility] [address] [place] [address] OFFICE VISIT Date of Service: 06/08/24 MR#: [id number] Acct: [id number] Name: SOSA OLIVER Rep #: [id number] : 2000 Provider: Aj Huang DO Age/Sex: 23/F Location: [facility] Status: Signed Intake Vital Signs 06/16/23 16:14 Height 5 ft 7 in Weight: 140 lb BMI 21.9 BP 110/76 Blood Pressure Location Lt brachial Position Sitting Respiration 16 Pulse 86 Pulse Source Monitor Temp 98.0 F Temp Source Temporal Pulse Oximetry (%) 98 Oxygen Delivery Method room air Intake Visit Reasons: 6 M FU Allergies No Known Allergies Allergy (Verified 06/16/23 16:15) [facility] Medical History Anemia Anxiety Asthma Depression Influenza A Loss of consciousness Migraine headache Narcolepsy Non-smoker Pelvic pain Pharyngitis Postauricular lymphadenitis URI (upper respiratory infection) Urinary tract infection Wears glasses Surgical History H/O laparoscopy No pertinent past surgical history Family History Other No pertinent family history Social History Smoking Status: Never smoker alcohol intake: never HPI HPI Details: SOSA OLIVER, is a 23 F who presents to the office today for follow up. KUB 5.31.18???moderate colonic fecal burden.?Laparoscopy, pelvic diagnostic 05.27.22???without acute/chronic finding??? *BGI established 10.18.22 with lower abdominal/pelvic pain/cramping; has sensation that she can feel fecal material moving through her large bowel. BM pattern 1-2/week with harder stools. Stool softener/MiraLAX have been ineffective. Reflux in the evening with positive response to TUMS.?Biochemical 10.18.22???ESR, CRP, LDH, T3, T4, TSH, GAME, celiac, DEEPTI, ANCA, ALEXANDR comp without pertinent abnormality? Ferritin L7?SITZ ???Day 3 without visualized rings?GET 6.7.23???18.55 minutes (12-56)??? Contact 11.19.22 with results???Start Linzess 145mcg.?OV 03.18. Pt continues to have irregular bowels. Has started to have liquid stools a few times a month on Linzess. Has a BM every other day and has to strain. OV 5..24 pt reports that she is taking Amitiza 8mcg once a day and dicyclomine as needed for her abdominal pain, but is unsure if it is helpful. Pt reports that 3-4 times a month she will have unbearable abdominal pain and is unsure of triggers. pt states that every week and a half she will have a bm, sometimes small and soft; and other times it is a hard stool. Pt states that there is occasionally blood in her stool from hemorrhoids and straining. OV 06.08.24 pt reports that in October she began exercising and changed her diet. Then in February she stopped talking all of her medications. Pt reports she was having a daily soft bm until this week, has not had a bm. Pt reports it could be due to diet change this week with the holidays. Pt reports HB in the evening, reports TUMs are effective. ROS Const Constitutional: Positive for fatigue and weight change (weight gain); No fever(s) ENT ENT: No difficulty swallowing Gastro GI: Positive for abdominal pain, bloating, constipation, diarrhea, heartburn and excessive flatus; No belching, change in bowel habits, change in stool character, coffee ground emesis, cramping, difficulty swallowing, feeling full early, incontinent of stools, Vomiting blood/hematemesis, Blood in stool, loose stools, Black,tarry stools, nausea/dyspepsia, pain with swallowing, vomiting or other Musc Musculoskeletal: No joint pain Skin Skin: No yellowing of the eye or itchy eyes Psych Psychiatric: Positive for anxiety and Positive for depression Endo Endocrine: Positive for fatigue and weight change (weight gain) Aller/Imm Allergy/Immunologic: No itchy eyes Mauro/Lymp Hematologic/Lymphatic: No easy bleeding or easy bruising Exam Const General: cooperative, healthy appearing and no acute distress Nutritional Appearance: average body habitus Orientation: alert, awake and oriented x3 [facility] Head: normal to inspection Ears: hearing grossly normal bilaterally, external ears normal, TM's normal bilaterally and EAC's normal Nose: external nose normal, nares normal, septum normal and no nasal discharge Face and sinus: normal facial exam, sinuses nontender and face symmetric Mouth: oral mucosae normal, lip normal, tongue normal and oropharynx normal (more content not included)... Normal [facility] Gastro[facility]ology Visit Repor ton 10-13-2023 Gastroenterology Visit Report [facility] Gastroenterology [address] [place] [address] OFFICE VISIT Date of Service: 10/13/23 MR#: [id number] Acct: [id number] Name: SOSA OLIVER Rep #: [id number] : 2000 Provider: Aj Huang DO Age/Sex: 22/F Location: [facility] Status: Signed Intake Vital Signs 05/27/22 06:35 06/16/23 16:14 Height 5 ft 7 in 5 ft 7 in Intake Visit Reasons: 6 MO FU Chief Complaint: COUGH Allergies No Known Allergies Allergy (Verified 06/16/23 16:15) [facility] Medical History Anemia Anxiety Asthma Depression Influenza A Loss of consciousness Migraine headache Narcolepsy Non-smoker Pelvic pain Pharyngitis Postauricular lymphadenitis URI (upper respiratory infection) Urinary tract infection Wears glasses Surgical History H/O laparoscopy No pertinent past surgical history Family History Other No pertinent family history Social History Smoking Status: Never smoker alcohol intake: never HPI HPI Chief Complaint: COUGH Details: SOSA OLIVER, is a 22 F who presents to the office today for follow-up. KUB 5.31.18???moderate colonic fecal burden.?Laparoscopy, pelvic diagnostic 05.27.22???without acute/chronic finding??? *BGI established 10.18.22 with lower abdominal/pelvic pain/cramping; has sensation that she can feel fecal material moving through her large bowel. BM pattern 1-2/week with harder stools. Stool softener/MiraLAX have been ineffective. Reflux in the evening with positive response to TUMS.?Biochemical 10.18.22???ESR, CRP, LDH, T3, T4, TSH, GAME, celiac, DEEPTI, ANCA, ALEXANDR comp without pertinent abnormality? Ferritin L7?SITZ ???Day 3 without visualized rings?GET 11.13.22???18.55 minutes (12-56)??? Contact 11.19.22 with results???Start Linzess 145mcg.?OV 03.18.23 Pt continues to have irregular bowels. Has started to have liquid stools a few times a month on Linzess. Has a BM every other day and has to strain. OV 10.13.23 pt reports that she is taking Amitiza 8mcg once a day and dicyclomine as needed for her abdominal pain, but is unsure if it is helpful. Pt reports that 3-4 times a month she will have unbearable abdominal pain and is unsure of triggers. pt states that every week and a half she will have a bm, sometimes small and soft; and other times it is a hard stool. Pt states that there is occasionally blood in her stool from hemorrhoids and straining. ROS Const Constitutional: Positive for fatigue; No fever(s) or weight change ENT ENT: No difficulty swallowing Gastro GI: Positive for abdominal pain, bloating, constipation, heartburn, excessive flatus and nausea/dyspepsia; No belching, change in bowel habits, change in stool character, coffee ground emesis, cramping, diarrhea, difficulty swallowing, feeling full early, incontinent of stools, Vomiting blood/hematemesis, Blood in stool, loose stools, Black,tarry stools, pain with swallowing, vomiting or other Musc Musculoskeletal: No joint pain Skin Skin: No yellowing of the eye or itchy eyes Psych Psychiatric: Positive for anxiety and No depression Endo Endocrine: Positive for fatigue; No weight change Aller/Imm Allergy/Immunologic: No itchy eyes Mauro/Lymp Hematologic/Lymphatic: No easy bleeding or easy bruising Exam Const General: cooperative, healthy appearing and no acute distress Nutritional Appearance: average body habitus Orientation: alert, awake and oriented x3 [facility] Head: normal to inspection Ears: hearing grossly normal bilaterally, external ears normal, TM's normal bilaterally and EAC's normal Nose: external nose normal, nares normal, septum normal and no nasal discharge Face and sinus: normal facial exam, sinuses nontender and face symmetric Mouth: oral mucosae normal, lip normal, tongue normal and oropharynx normal Throat: posterior oropharynx normal, tonsils normal, uvula midline and no postnasal drainage Eyes General: appearance normal, both eyes and all related structures Neck Neck: normal visual inspection, full ROM, no meningeal signs, supple and lymphadenopathy (R postauricular lymph node of 1 cm diameter; fluctuant/ tender) Neck mass: No Thyroid: thyroid normal Chest Chest palpation inspection: normal inspection of the chest Resp Effort Inspection: normal respiratory effort and able to speak in complete sentences Auscultation: Bilateral: Clear to Au (more content not included)... Normal [facility] Cytology Reporton 2023 [facility] Cytology Report . Pathology Reports Accession: Collected Date/Time: Received Date/Time: Pathologist: [id number] 07/21/2023 09:05 EST 07/21/2023 18:00 EST [facility] Cytology Report SPECIMEN: Specimen Description: Liquid Prep Reflex ASCUS+ Specimen: Cervical/Endocervical Screening or Diagnostic: Screening RELEVANT HISTORY: LMP: 06/2023 SPECIMEN ADEQUACY: SATISFACTORY FOR EVALUATION Endocervical/Transform ational zone component present INTERPRETATION/RESULTS : NEGATIVE FOR INTRAEPITHELIAL LESION OR MALIGNANCY ORGANISMS: Fungal organisms morphologically consistent with linda species COMMENT: This Pap Test was successfully processed and evaluated with the assistance of the [employer] ThinPrep Test Imaging System. Electronically Signed by Pathology report verified by [facility] Screened by: [place] Electronically signed by Aida SINGER (ASCP) Sign-Out Date: 07/28/2023 13:26 Performing Lab: [address] Pathology Dept Disclaimer The Pap test is a screening test for cervical cancer. As evidenced by published data, it is subject to both inherent false negative and false positive results. Your patient's results should be interpreted in context with pertinent clinical history including gynecological examination. Normal [facility] ([place]) CTPCRon 07-23-2023 C. trachomatis Interp Normal See CT Interp N [facility] ([place]) Comment on above: Result Comment: C. t rachomatis DNA not detected. Specimen is presumptive negative for C. trachomatis. A negative result does not preclude C. trachomatis infection because results depend on adequate specimen collection, absence of inhibitors, and sufficient DNA to be detected. See CT Interp N Performed By: #### C TPCR, [email or web address] #### [place] [address] C.trachomatis PCR Negative Normal Negative [facility] ([place]) Comment on above: Result Comment: Mole cular (PCR) assay performed on the Tina Merry 4800 system. Performed By: #### C TPCR, NGPCR1 #### [place] [id number] Chlam Source Cervix Normal [facility] ([place]) Comment on above: Performed By: #### C TPCR, NGPCR1 #### [place] [address] [id number] 07-23-2023 GC PCR Source Cervix Normal [facility] ([place]) Comment on above: Performed By: #### C TPCR, NGPCR1 #### [facility] [address] [place] [id number] N. gonorrhoeae (PCR) Negative Normal Negative [facility] ([place]) Comment on above: Result Comment: Jared mitchellar (PCR) assay performed on the Tina Merry 4800 System. Performed By: #### C TPCR, NGPCR1 #### [address] [address] N. gonorrhoeae Interp Normal See NG Interp N [facility] ([place]) Comment on above: Result Comment: N. g onorrhoeae DNA not detected. Specimen is presumptive negative for N. gonorrhoeae. A negative result does not preclude Neisseria gonorrhoeae infection because results depend on adequate specimen collection, absence of inhibitors, and sufficient DNA to be detected. See NG Interp N Performed By: #### C TPCR, NGPCR1 #### [address] [address] LABORATORYOrdered By: Bre tran on 07-21-2023 C. trachomatis DNA EDUIN+probe Ql (Unsp spec) Negative 2 (07/21/23 1:33 PM) Normal Negative [facility]Sero [facility] Comment on above: Interpretive Data: M olecular (PCR) assay performed on the Tina Merry 4800 system. C. trachomatis DNA EDUIN+probe Ql (Unsp spec) C. trachomatis DNA not detected. Specimen is presumptive negative forC. trachomatis.A negative result does not preclude C. trachomatis infection becauseresults depend on adequate specimen collection, absence of inhibitors,and sufficient DNA to be detected. Normal See CT Interp N AH Auto Viro/Sero SS N. gonorrhoeae DNA EDUIN+probe Ql (Unsp spec) Negative 1 (07/21/23 1:33 PM) Normal Negative AH [facility] Viro[facility]Sero SS Comment on above: Interpretive Data: M olecular (PCR) assay performed on the Tina Merry 4800 System. N. gonorrhoeae DNA EDUIN+probe Ql (Unsp spec) N. gonorrhoeae DNA not detected. Specimen is presumptive negative forN. gonorrhoeae. A negative result does not preclude Neisseria gonorrhoeaeinfection because results depend on adequate specimen collection, absenceof inhibitors, and sufficient DNA to be detected. Normal See NG Interp N AH Auto Viro/Sero SS Laboratory - Specimen inform ationOrdered By: Bre Porter on 07-21-2023 Specimen source Nom (Unsp spec) Cervix (07/21/23 1:33 PM) Normal AH Auto Viro/Sero SS No Panel InformationOrdered By: Mary Cardenas on 07-21-2023 Affirm Pathogens DNA Direct Probe Gardnerella vaginalis DNA Probe Positive Linda species DNA Probe Positive Trichomonas vaginalis DNA Probe Negative [facility] Albumin Elph [Mass/Vol]Order ed By: Aj Huang on 10-18-2022 Albumin [Mass/Vol] 3.2 g/dL 2.9-4.4 [facility] Atypical perinuclear antineu trophil cytoplasmic antibodies measurementOrdered By: Aj Huang on 10-18-2022 Neutrophil cytoplasmic Ab.perinuclear.atypical IF (S) [Titer] <1:20 titer Neg:<1:20 [facility] Comment on above: The atypical pANCA p attern has been observed in asignificant percentage of patients with ulcerative colitis,primary sclerosing cholangitis and autoimmune hepatitis. Basophil percentageOrdered B y: Aj Huang on 10-18-2022 Basophil percentage < 0.2 AI 0.0-0.9 [facility] LDH [Catalytic activity/Vol] 167 U/L 84-246 [facility] Erythrocyte sedimentation ra teOrdered By: Aj Huang on 10-18-2022 ESR (Bld) [Velocity] 4 mm/h 0-[address] [facility] Interpretation of serum or p lasma protein pattern by immunofixation (narrative resultOrdered By: Aj Huang on 10-18-2022 Protein Fractions Immunofixation Yung [Interp] See comment [facility] Comment on above: NOT OBSERVED Laboratory - Chemistry and C hemistry - challengeOrdered By: Aj Huang on 10-18-2022 Free T4 [Mass/Vol] 0.88 ng/dL 0.76-1.46 [facility] No Panel InformationOrdered By: Aj Huang on 10-18-2022 Addendum Document Comment . [facility] Comment on above: Protein electrophore sis scan will follow via computer,mail, or sewer inspector delivery. Centromere B Antibody <0.2 AI 0.0-0.9 [facility] Endomysial IgA Antibody Negative Negative [facility] Free Triiodothyronine (T3) pg/dL 2.5 pg/mL 2.18-3.98 [facility] Immunoglobulin E 36 IU/mL 6-495 [facility] Comment on above: Performed at: - [facility] [address] [id number] Director: Kyle Antoine PhD, Phone: [phone] at: [facility] [id number] Director: Chuck Dubon MD, Phone: [phone] PHOTOGRAPHIC LITHOGRAPHER Antibody 0.6 AI 0.0-0.9 [facility] Thyroid Stimulating Hormone (TSH) 1.02 uIU/mL 0.358-3.74 [facility] Serum DNA double strand anti body assay (units/volume)Ordered By: Aj Huang on 10-18-2022 DNA double strand Ab Qn (S) [IU]/mL 0-9 [facility] Comment on above: Negative <5 Equivoca l 5 - 9 Positive >9 Serum Maggie-1 antibody assay (u nits/volume)Ordered By: Aj Huang on 10-18-2022 Maggie-1 extractable nuclear Ab Qn (S) <0.2 AI 0.0-0.9 [facility] Serum Scl-70 extractable nuc lear antibody assay (units/volume)Ordered By: Aj Huang on 10-18-2022 SCL-70 extractable nuclear Ab Qn (S) <0.2 AI 0.0-0.9 [facility] Serum Gomes extractable nucl ear antibody detectionOrdered By: Aj Huang on 10-18-2022 Gomes extractable nuclear Ab Ql (S) <0.2 AI 0.0-0.9 [facility] Serum wxayp-3-bnpcbcso measu rement by electrophoresisOrdered By: Aj Huang on 10-18-2022 Alpha 1 globulin Elph [Mass/Vol] 0.4 g/dL 0.0-0.4 [facility] Alpha 1 globulin Elph [Mass/Vol] 0.8 g/dL 0.4-1.0 [facility] Serum classic neutrophil cyt oplasmic antibody assay (units/volume)Ordered By: Aj Huang on 10-18-2022 Neutrophil cytoplasmic Ab.classic Qn (S) <1:20 titer Neg:<1:20 [facility] Serum globulin measurement ( mass/volume)Ordered By: Aj Huang on 10-18-2022 Globulin (S) [Mass/Vol] 3.3 g/dL 2.2-3.9 [facility] Serum or plasma C reactive p rotein measurement (mass/volume)Ordered By: Aj Huang on 10-18-2022 CRP [Mass/Vol] mg/L 0.0-3.0 [facility] Comment on above: C-Reactive Protein ( CRP) provides useful information for thediagnosis, therapy and monitoring of inflammatory processesand associated diseases. For the evaluation of Relative Riskfor Cardiovascular Disease, a High Sensitivity CRP (HSCRP)should be ordered. Serum or plasma IgA measurem ent (mass/volume)Ordered By: Aj Huang on 10-18-2022 IgA [Mass/Vol] 115 mg/dL 87-352 [facility] Serum or plasma IgG measurem ent (mass/volume)Ordered By: Aj Huang on 10-18-2022 IgG [Mass/Vol] 957 mg/dL [phone] [facility] Serum or plasma IgM measurem ent (mass/volume)Ordered By: Aj Huang on 10-18-2022 IgM [Mass/Vol] 136 mg/dL 26-217 [facility] Serum or plasma beta globuli n measurement by electrophoresis (mass/volume)Ordered By: Aj Huang on 10-18-2022 Beta globulin Elph [Mass/Vol] 1.2 g/dL 0.7-1.3 [facility] Serum or plasma ferritin celina surement (mass/volume)Ordered By: Aj Huang on 10-18-2022 Ferritin [Mass/Vol] 7 ng/mL 8-252 [facility] Serum or plasma gamma globul in measurement by electrophoresis (mass/volume)Ordered By: Aj Huang on 10-18-2022 Gamma globulin Elph [Mass/Vol] 1.0 g/dL 0.4-1.8 [facility] Serum or plasma immunoelectr ophoresis interpretation (nominal result)Ordered By: Aj Huang on 10-18-2022 Interpretation IEP [Interp] Comment . [facility] Comment on above: No monoclonality det ected. Serum perinuclear neutrophil cytoplasmic antibody titer by immunofluorescenceOrdered By: Aj Huang on 10-18-2022 Neutrophil cytoplasmic Ab.perinuclear IF (S) [Titer] <1:20 titer Neg:<1:20 [facility] Comment on above: The presence of posi tive fluorescence exhibiting P-ANCA orC-ANCA patterns alone is not specific for the diagnosis ofWegener's Granulomatosis (WG) or microscopic polyangiitis.Decisions about treatment should not be based solely onANCA IFA results. The International ANCA Group Consensusrecommends follow up testing of positive sera with both NH-3 and MPO-ANCA enzyme immunoassays. As many as 5% serumsamples are positive only by EIA. Ref. AM J Clin Aolvhe2942;111:507-513. Serum tissue transglutaminas e IgA antibody assay (units/volume)Ordered By: Aj Huang on 10-18-2022 tTG IgA Qn (S) <2 U/mL 0-3 [facility] Comment on above: Negative 0 - 3 Weak Positive 4 - 10 Positive >10 Tissue Transglutaminase (tTG) has been identified as the endomysial antigen. Studies have demonstr- ated that endomysial IgA antibodies have over 99% specificity for gluten sensitive enteropathy. Thin prep Papanicolaou smear with manual screeningOrdered By: Aj Huang on 10-18-2022 Thin prep Papanicolaou smear with manual screening 1.0 0.7-1.[address] [facility] Total protein bloodOrdered B y: Aj Huang on 10-18-2022 Protein [Mass/Vol] 6.5 g/dL 6.0-8.5 [facility] Laboratory - Microbiology an d Antimicrobial susceptibilityon 10-15-2022 S. pyogenes Ag IA Ql (Unsp spec) Negative [facility] SARS-CoV-2 (COVID-19) RNA EDUIN+probe Ql (Unsp spec) Not detected [facility] No Panel Informationon 10-15 Influenza Types A,B Rapid (Clinic) Not detected [facility] Laboratory - Chemistry and C hemistry - challengeon 05-27-2022 HCG ( test) Ql (U) Negative [facility] Work Phone: Comment on above: Very dilute urine sp ecimens, as indicated by a low specificgravity, may not contain training representative levels of hCG. If is still suspected, a first morning urinespecimen should be collected 48 hours later and tested. 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 - rizatriptan (MAXALT) 10 mg tablet For a severe migraine take Maxalt 10 mg plus Aleve 220 mg by mouth. If no better in 2 hours take a second Maxalt 10 mg plus one extra strength Tylenol. Maxalt: May take 2 doses of Maxalt in one day, 4 doses and 2 consecutive days, no more than 8 doses per month. - albuterol HFA (PROAIR HFA) 90 mcg/actuation inhaler Inhale 2 Puffs as instructed every 4 hours as needed for Wheezing/Shortness of Breath. - fluticasone (FLOVENT HFA) 110 mcg/actuation inhaler Inhale 1 Puff as instructed twice daily. Use the spacer as directed. Normal [facility] Basophil percentageon 2021 Basophil percentage 5-10 SEEN /hpf 0-5 [facility] Work Phone: Bilirubin Test strip Ql (U)o n 12-11-2021 Bilirubin Ql (U) Negative Negative [facility] Work Phone: Ketones Test strip Ql (U)on 12-11-2021 Ketones Ql (U) Negative Negative [facility] Work Phone: Laboratory - Chemistry and C hemistry - challengeon 12-11-2021 Bilirubin Ql (U) Negative [facility] Work Phone: Glucose Ql (U) Negative [facility] Work Phone: HCG ( test) Ql (U) Negative [facility] Work Phone: Ketones Ql (U) Negative [facility] Work Phone: pH (U) 6.0 [pH] [facility] Work Phone: Specific gravity (U) [Rel density] 1.015 [facility] Work Phone: Urobilinogen (U) [Mass/Vol] Negative [facility] Work Phone: Laboratory - Hematology and Cell countson 12-11-2021 Hemoglobin Ql (U) Negative [facility] Work Phone: Laboratory - Specimen inform ationon 12-11-2021 Clarity (U) Clear [facility] Work Phone: Color (U) Yellow [facility] Work Phone: Laboratory - Urinalysison Nitrite Ql (U) Negative [facility] Work Phone: Protein Ql (U) Negative [facility] Work Phone: Mucus LM Ql (Urine sed)on Mucus Ql (Urine sed) 0 SEEN /hpf [facility] Work Phone: Nitrite Test strip Ql (U)on 12-11-2021 Nitrite Ql (U) Negative Negative [facility] Work Phone: No Panel Informationon 12-11 Urine Leukocytes Positive [facility] Work Phone: Urine Non-Hemolyzed Blood Negative [facility] Work Phone: Protein Test strip Ql (U)on 12-11-2021 Protein Ql (U) 15 mg/dl Negative [facility] Work Phone: Squamous epithelial cells de tection in urine sediment by light microscopyon 12-11-2021 Epithelial cells.squamous LM Ql (Urine sed) 5-10 SEEN /hpf 5-10 [facility] Work Phone: Urine blood detectionon 07-0 RBC Ql (U) Negative Negative [facility] Work Phone: RBC Ql (U) 0 SEEN /hpf 0-5 [facility] Work Phone: Urine clarityon 12-11-2021 Clarity (U) Sl. Cloudy Clear [facility] Work Phone: Urine color determinationon 12-11-2021 Color (U) Yellow Yellow [facility] Work Phone: Urine glucose detectionon Glucose Ql (U) Normal mg/dl Normal [facility] Work Phone: Urine leukocyte esterase det ection by dipstickon 12-11-2021 Leukocyte esterase Test strip Ql (U) 100 /ul Negative [facility] Work Phone: Urine pHon 12-11-2021 pH (U) 6.0 [pH] 5.0 - 8.0 [facility] Work Phone: Urine sediment bacteria coun t by microscopy (number/high power field)on 12-11-2021 Bacteria LM.HPF (Urine sed) [#/Area] 2 /[HPF] None Seen [facility] Work Phone: Urine specific gravity measu rementon 12-11-2021 Specific gravity (U) [Rel density] 1.015 1.002-1.03 0 [facility] Work Phone: Urobilinogen Auto test strip Ql (U)on 12-11-2021 Urobilinogen Ql (U) 1 mg/dl Normal [facility] Work Phone: CNTHERAPYon 12-04-2021 CNTHERAPY OT/PT/Speech Visit (PTWS) SOSA OLIVER ([id number]) 2 F Date Time Provider Department 12/04/21 7:00 AM FRANCHESKA BRIGGS PTWS Date Time Provider Department [facility] 12/04/2021 7:00 AM [id number], CARA PTWS 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 - rizatriptan (MAXALT) 10 mg tablet For a severe migraine take Maxalt 10 mg plus Aleve 220 mg by mouth. If no better in 2 hours take a second Maxalt 10 mg plus one extra strength Tylenol. Maxalt: May take 2 doses of Maxalt in one day, 4 doses and 2 consecutive days, no more than 8 doses per month. - albuterol HFA (PROAIR HFA) 90 mcg/actuation inhaler Inhale 2 Puffs as instructed every 4 hours as needed for Wheezing/Shortness of Breath. - fluticasone (FLOVENT HFA) 110 mcg/actuation inhaler Inhale 1 Puff as instructed twice daily. Use the spacer as directed. 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 - rizatriptan (MAXALT) 10 mg tablet For a severe migraine take Maxalt 10 mg plus Aleve 220 mg by mouth. If no better in 2 hours take a second Maxalt 10 mg plus one extra strength Tylenol. Maxalt: May take 2 doses of Maxalt in one day, 4 doses and 2 consecutive days, no more than 8 doses per month. - albuterol HFA (PROAIR HFA) 90 mcg/actuation inhaler Inhale 2 Puffs as instructed every 4 hours as needed for Wheezing/Shortness of Breath. - fluticasone (FLOVENT HFA) 110 mcg/actuation inhaler Inhale 1 Puff as instructed twice daily. Use the spacer as directed. 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 - rizatriptan (MAXALT) 10 mg tablet For a severe migraine take Maxalt 10 mg plus Aleve 220 mg by mouth. If no better in 2 hours take a second Maxalt 10 mg plus one extra strength Tylenol. Maxalt: May take 2 doses of Maxalt in one day, 4 doses and 2 consecutive days, no more than 8 doses per month. - albuterol HFA (PROAIR HFA) 90 mcg/actuation inhaler Inhale 2 Puffs as instructed every 4 hours as needed for Wheezing/Shortness of Breath. - fluticasone (FLOVENT HFA) 110 mcg/actuation inhaler Inhale 1 Puff as instructed twice daily. Use the spacer as directed. Normal [facility] Office Visit: UC: mecca sarabia on 01-13-2017 Documentation of current medications (procedure) Done Invalid Interpretation Code [facility] Work Phone: Fall risk assessment No [facility] Work Phone: Protein mass conc Done [facility] Work Phone: Tobacco smoking status NHIS Never smoker [facility] Work Phone: Tobacco use CPHS Never smoker Invalid Interpretation Code [facility] Work Phone: Office Visit: UC: L wrist sp ainon 11-27-2016 Documentation of current medications (procedure) Done Invalid Interpretation Code [facility] Work Phone: Documentation of current medications (procedure) T Invalid Interpretation Code [facility] Work Phone: Fall risk assessment No Invalid Interpretation Code [facility] Work Phone: Tobacco use HS Never smoker Invalid Interpretation Code [facility] Work Phone: Office Visit: UC: sore throa t, fatigue, coughon 07-16-2016 Rapid strep test Negative Invalid Interpretation Code [facility] Work Phone: S. pyogenes DNA EDUIN+probe Ql (Throat) Negative [facility] Work Phone: Culture, urine Bacteria identified Cx Nom (U) Positive [facility] Work Phone: Vital Signs Date Time Vital Sign Value Performing Clinician Faci melisa 08-19-2024 07:20-0400 Body temperature 98 [degF] Dr. Shelly Topete MD Work Phone: [facility] 08-19-2024 07:20-0400 Diastolic blood pressure 62 mm[Hg] Dr. Shelly Topete MD Work Phone: [facility] 08-19-2024 07:20-0400 Heart rate 79 /min Dr. Shelly Topete MD Work Phone: [facility] 08-19-2024 07:20-0400 Respiratory rate 14 /min Dr. Shelly Topete MD Work Phone: [facility] 08-19-2024 07:20-0400 SaO2% (BldA) [Mass fraction] 99 % Dr. Shelly Topete MD Work Phone: [facility] 08-19-2024 07:20-0400 Systolic blood pressure 104 mm[Hg] Dr. Shelly Topete MD Work Phone: [facility] 10-15-2022 15:12-0400 Body temperature 98.4 [degF] Dr. Shelly Topete Work Phone: [facility] 10-15-2022 15:12-0400 Diastolic blood pressure 68 mm[Hg] Dr. Shelly Topete Work Phone: [facility] 10-15-2022 15:12-0400 Heart rate 87 /min Dr. Shelly Topete Work Phone: [facility] 10-15-2022 15:12-0400 Respiratory rate 14 /min Dr. Shelly Topete Work Phone: [facility] 10-15-2022 15:12-0400 SaO2% (BldA) [Mass fraction] 96 % Dr. Shelly Topete Work Phone: [facility] 10-15-2022 15:12-0400 Systolic blood pressure 112 mm[Hg] Dr. Shelly Topete Work Phone: [facility] 05-27-2022 09:00-0500 Body temperature 98.5 [degF] [facility] Work Phone: 05-27-2022 09:00-0500 Diastolic blood pressure 76 mm[Hg] [facility] Work Phone: 05-27-2022 09:00-0500 Heart rate 94 /min [facility] Work Phone: 05-27-2022 09:00-0500 Respiratory rate 14 /min [facility] Work Phone: 05-27-2022 09:00-0500 SaO2% (BldA) [Mass fraction] 100 % [facility] Work Phone: 05-27-2022 09:00-0500 Systolic blood pressure 116 mm[Hg] [facility] Work Phone: 05-27-2022 06:35-0500 Body height 170.18 cm [facility] Work Phone: 05-27-2022 06:35-0500 Body mass index (BMI) [Ratio] 22.2 kg/m2 [facility] Work Phone: 05-27-2022 06:35-0500 Body weight 64.41 kg [facility] Work Phone: 12-11-2021 06:52-0400 Body temperature 97.7 [degF] Dr. Shelly Topete Work Phone: [facility] Work Phone: 12-11-2021 06:52-0400 Diastolic blood pressure 80 mm[Hg] Dr. Shelly Topete Work Phone: [facility] Work Phone: 12-11-2021 06:52-0400 Heart rate 97 /min Dr. Shelly Topete Work Phone: [facility] Work Phone: 12-11-2021 06:52-0400 Respiratory rate 14 /min Dr. Shelly Topete Work Phone: [facility] Work Phone: 12-11-2021 06:52-0400 SaO2% (BldA) [Mass fraction] 97 % Dr. Shelly Topete Work Phone: [facility] Work Phone: 12-11-2021 06:52-0400 Systolic blood pressure 110 mm[Hg] Dr. Shelly Topete Work Phone: [facility] Work Phone: 01-13-2017 10:31-0400 BMI (Body Mass Index) 24.29 kg/m2 Selena Lau LPN [facility] Work Phone: 01-13-2017 10:31-0400 Body Temperature 98.2 [degF] Selenawilbert Lau LPN [facility] Work Phone: 01-13-2017 10:31-0400 BP Diastolic 68 mm[Hg] Selenawilbert Lau LPN [facility] Work Phone: 01-13-2017 10:31-0400 BP Systolic 102 mm[Hg] Selena Lau LPN [facility] Work Phone: 01-13-2017 10:31-0400 Height 168.91 cm Selenawilbert Lau LPN [facility] Work Phone: 01-13-2017 10:31-0400 Pulse (Heart Rate) 92 /min Selenawilbert Lau LPN [facility] Work Phone: 01-13-2017 10:31-0400 Respiratory Rate 15 /min Selenawilbert Lau LPN [facility] Work Phone: 01-13-2017 10:31-0400 Weight 69.31 kg Selenawilbert Lau LPN [facility] Work Phone: 11-27-2016 10:24-0400 BMI (Body Mass Index) 23.91 kg/m2 Selenawilbert Lau LPN [facility] Work Phone: 11-27-2016 10:24-0400 Body Temperature 98.5 [degF] Selena Lau LPN [facility] Work Phone: 11-27-2016 10:24-0400 BP Diastolic 58 mm[Hg] Selena Lau LPN [facility] Work Phone: 11-27-2016 10:24-0400 BP Systolic 104 mm[Hg] Selena Lau LPN [facility] Work Phone: 11-27-2016 10:24-0400 Height 168.91 cm Selena Lau LPN [facility] Work Phone: 11-27-2016 10:24-0400 Pulse (Heart Rate) 92 /min Selena Lau LPN [facility] Work Phone: 11-27-2016 10:24-0400 Pulse Oximetry 99 % Selena Lau LPN [facility] Work Phone: 11-27-2016 10:24-0400 Respiratory Rate 14 /min Selena Lau LPN [facility] Work Phone: 11-27-2016 10:24-0400 Weight 68.22 kg Selena Lau LPN [facility] Work Phone: 07-16-2016 15:46-0500 BSA (Body Surface Area) 1.75 m2 Selena Lau LPN [facility] Work Phone: Encounters Encounter Date Encounter Type Care Provider Facility Start: 08-19-2024 End: 08-19-[address] Shelly Topete MD Work Phone: [facility] Work Phone: Start: 08-19-2024 End: 08-19-2024 Patient encounter procedure Ignacio FRANZ -Laboratory, Specimen Work Phone: Start: 08-19-2024 End: 08-19-2024 Patient encounter procedure Ignacio FRANZ [facility] Work Phone: Start: 08-19-2024 End: 08-19-2024 ambulatory Shelly Topete Facility:[facility] Start: 08-19-2024 End: 08-19-2024 ambulatory Ignacio FRANZ Facility:[facility] Start: 06-08-2024 End: 06-08-2024 Patient encounter procedure Aj Huang DO [facility] Work Phone: Start: 06-08-2024 End: 06-08-2024 ambulatory Shelly Topete Facility:[facility] Start: 10-13-2023 End: 10-13-2023 ambulatory Shelly Topete Facility:[facility] Start: 07-21-2023 End: 07-26-2023 ambulatory SARAHY SOLANO LEAD TEACH[employer]GE [employer] Facility:[facility] Start: 07-21-2023 End: 07-26-2023 Encounter for gynecological examination (general) (routine) without abnormal findings SARAHY SOLANO LEAD TEACHER[employer]BRIDGE [employer]PERATOR [employer] Facility:[facility] Start: 07-21-2023 End: 07-25-2023 Outreach Lab SARAHY SOLANO LEAD TEACHER-BRIDGE OPERATOR [employer] [facility] Start: 11-07-2022 End: 11-07-[address] Shelly Topete Work Phone: [facility] Work Phone: Start: 11-07-2022 End: 11-07-[address] Shelly Topete Work Phone: [facility] Start: 11-05-[address] Shelly Topete Work Phone: [facility] Start: 10-18-2022 End: 10-18-[address] Shelly Topete Work Phone: [facility] Start: 10-15-2022 End: 10-15-[address] Shelly Topete Work Phone: [facility] Start: 06-15-2022 End: 06-15-2022 ambulatory VERNON BECK Facility:[facility] Start: 05-27-2022 End: 05-27-2022 Admission to same day surgery center [facility] Start: 05-27-2022 End: 05-27-[address] [facility] sp[facility] Work Phone: Start: 01-09-2022 Non-patient / Non-visit Dr. Gomez Topete Work Phone: [facility] Start: 01-09-2022 End: 01-09-[address] Shelly Topete Work Phone: [facility] Start: 01-01-2022 End: 01-01-2022 ambulatory Francheskaze Briggs PT Work Phone: [facility] Comment on above: Muscle tightness (Pr imary Dx); Dyspareunia, psychogenic Start: 12-11-2021 End: 12-11-[address] Shelly Topete Work Phone: [facility]Labor[facility] Specimen Start: 12-11-2021 End: 12-11-[address] Shelly Topete Work Phone: [facility] Start: 12-04-2021 End: 12-04-2021 ambulatory Francheskaze SchwartzBriggs PT Work Phone: [facility] Comment on above: Muscle tightness (Pr imary Dx); Dyspareunia, psychogenic Start: 11-27-2021 End: 11-27-2021 ambulatory FRANCHESKA BRIGGS Facility:[facility] Start: 11-27-2021 End: 11-27-2021 ambulatory Francheska Briggs PT Work Phone: [facility] Comment on above: Muscle tightness (Pr imary Dx); Dyspareunia, psychogenic Start: 11-20-2021 End: 11-20-2021 ambulatory FRANCHESKA BRIGGS Facility:[facility] Start: 08-12-2018 End: 08-12-2018 Patient encounter procedure [facility] Procedures Date Procedure Procedure Detail Performing Clinician Start: 08-19-2024 Beta-hemolytic Streptococcus culture Dr. Shelly Topete MD Work Phone: Start: 11-07-2022 Diagnostic radiograp hy of abdomen Dr. Shelly Topete Work Phone: Start: 11-05-2022 Diagnostic radiograp hy of abdomen Dr. Shelly Topete Work Phone: Start: 05-27-2022 Laparoscopy Start: 08-17-2019 Adult depression scr eening assessment Francheska Briggs PT Work Phone: Start: 07-16-2016 End: 07-16-2016 Iaadiadoo streptococcus group a Ignacio Tomas PA Work Phone: Start: 07-16-2016 End: 07-16-2016 Rapid strep test Ignacio FRANZ Work Phone: Laparoscope, device (physical object) SARAHY SOLANO LEAD TEACHER[employer]BRIDGE OPERATOR [employer] Comment on above: Check for Ovarian cy st Urine culture Dr. Shelly varela Work Phone: Plan of Treatment Date Care Activity Detail Author Start: 04-02-2023 Urine microalbumin profile DTAP,TDAP,TD (7 - Td or Tdap) [facility] Start: 05-27-2022 Introduction of urinary catheter [facility] Work Phone: Start: 05-27-2022 Patient discharge [facility] Work Phone: Start: 05-27-2022 Ambulation therapy management [facility] Work Phone: Start: 05-27-2022 Continuous pulse oximetry [facility] Work Phone: Start: 05-27-2022 Elevation of head of bed [facility] Work Phone: Start: 05-27-2022 Incentive spirometry [facility] Work Phone: Start: 05-27-2022 Measuring intake and output [facility] Work Phone: Start: 05-27-2022 Notification of physician [facility] Work Phone: Start: 05-27-2022 End: 05-27-2022 Oxygen therapy [facility] Work Phone: Start: 05-27-2022 Patient education [facility] Work Phone: Start: 05-27-2022 Taking patient vital signs [facility] Work Phone: Start: 05-27-2022 Wound care [facility] Work Phone: Start: 05-27-2022 [facility] Work Phone: Start: 02-07-2022 Influenza vaccination [facility] Start: 08-19-2021 ASTHMA ACTION PLAN ASTHMA ACTION PLAN [facility] Start: 03-24-2021 CHLAMYDIA SCREENING (1824) CHLAMYDIA SCREENING (18-24) [facility] Start: 03-24-2021 GC (GONORRHEA) SCREENING (18-24) GC (GONORRHEA) SCREENING (18-24) [facility] Start: 08-16-2020 Adult depression screening assessment DEPRESSION SCREENING [facility] Start: 08-16-2020 ANNUAL PCP TEAM CHRONIC DISEASE VISIT ANNUAL PCP TEAM CHRONIC DISEASE VISIT [facility] Start: 08-16-2020 ASTHMA CONTROL TEST ASTHMA CONTROL TEST [facility] Start: 12-25-2019 HEPATITIS C SCREENING HEPATITIS C SCREENING [facility] Start: 12-25-2019 HIV SCREENING HIV SCREENING [facility] Start: 12-25-2019 SPIROMETRY SPIROMETRY [facility] Start: 01-13-2017 End: 01-13-2017 Appointment Appointment [facility] Work Phone: Start: 11-27-2016 End: 11-27-2016 Appointment Appointment [facility] Work Phone: Start: 11-27-2016 End: 11-27-2016 X-ray exam of wrist X-Ray, Wrist [facility] Work Phone: Start: 12-25-2015 PEDS TO ADULT TRANSITION ANNUAL ASSESSMENT PEDS TO ADULT TRANSITION ANNUAL ASSESSMENT [facility] Start: 2013 PEDS TO ADULT TRANSITION INITIAL DISCUSSION PEDS TO ADULT TRANSITION INITIAL DISCUSSION [facility] Start: 12-25-2011 MENINGOCOCCAL B: Consider based on risk (1 of 2 - Risk Bexsero 2-dose series) MENINGOCOCCAL B: Consider based on risk (1 of 2 - Risk Bexsero 2-dose series) [facility] Start: 12-25-2007 PNEUMOCOCCAL (1 - PCV) PNEUMOCOCCAL (1 - PCV) [facility] Start: 2006 COVID-19 VACCINE (#1) COVID-19 VACCINE (#1) [facility] Start: 06-26-2002 COVID-19 VACCINE (#1) COVID-19 VACCINE (#1) [facility] Patient Education [facility] in Work Phone: Patient referral [facility] Work Phone: Radionuclide gastric emptying study [facility] Immunizations Immunization Date Immunization Notes Care Provider Catherine soriano 08-17-2019 influenza, injectabl e, quadrivalent, preservative free Francheska Briggs PT Work Phone: [facility] 02-02-2018 meningococcal polysaccharide (groups A, C, Y and W-135) diphtheria toxoid conjugate vaccine (MCV4P) Francheska Briggs PT Work Phone: [facility] 05-15-2015 influenza, injectabl e, quadrivalent, contains preservative Francheska Briggs PT Work Phone: [facility] 04-08-2014 influenza, injectabl e, quadrivalent, preservative free Francheska Briggs PT Work Phone: [facility] 10-07-2013 human papilloma viru s vaccine, quadrivalent Francheska Briggs PT Work Phone: [facility] 06-04-2013 human papilloma viru s vaccine, quadrivalent Francheska Briggs PT Work Phone: [facility] Work Phone: 04-02-2013 human papilloma viru s vaccine, quadrivalent Francheska Briggs PT Work Phone: [facility] Work Phone: 04-02-2013 influenza virus vacc ine, live, attenuated, for intranasal use Francheska Briggs PT Work Phone: [facility] Work Phone: 04-02-2013 Meningococcal, MCV4, unspecified conjugate formulation(groups A, C, Y and W-135) Francheska Briggs PT Work Phone: [facility] Work Phone: 04-02-2013 tetanus toxoid, redu reid diphtheria toxoid, and acellular pertussis vaccine, adsorbed Francheska Briggs PT Work Phone: [facility] Work Phone: 03-03-2012 influenza virus vacc ine, live, attenuated, for intranasal use Francheska Briggs PT Work Phone: [facility] 03-03-2012 varicella virus vaccine Francheska Briggs PT Work Phone: [facility] 02-14-2010 influenza virus vacc ine, live, attenuated, for intranasal use Francheska Briggs PT Work Phone: [facility] Work Phone: 03-14-2009 influenza virus vacc ine, live, attenuated, for intranasal use Francheska Briggs PT Work Phone: [facility] Work Phone: 01-22-2007 diphtheria, tetanus toxoids and acellular pertussis vaccine Francheska Briggs PT Work Phone: [facility] Work Phone: 01-22-2007 measles, mumps and rubella virus vaccine Francheska Briggs PT Work Phone: [facility] Work Phone: 01-22-2007 poliovirus vaccine, inactivated Francheska Briggs PT Work Phone: [facility] Work Phone: 04-08-2006 influenza virus vacc ine, unspecified formulation Francheska Briggs PT Work Phone: [facility] Work Phone: 04-18-2005 influenza virus vacc ine, unspecified formulation Francheska Briggs PT Work Phone: [facility] Work Phone: 06-20-2004 varicella virus vaccine Francheska Briggs PT Work Phone: [facility] Work Phone: 05-23-2003 influenza virus vacc ine, unspecified formulation Francheska Briggs PT Work Phone: [facility] Work Phone: 04-01-2003 diphtheria, tetanus toxoids and acellular pertussis vaccine Francheska Briggs PT Work Phone: [facility] Work Phone: 04-01-2003 haemophilus influenz ae type b vaccine, HbOC conjugate Francheska Briggs PT Work Phone: [facility] Work Phone: 01-20-2003 measles, mumps and rubella virus vaccine Francheska Briggs PT Work Phone: [facility] Work Phone: 01-20-2003 pneumococcal conjuga te vaccine, 7 valent Francheska Briggs PT Work Phone: [facility] Work Phone: 12-25-2002 hepatitis B vaccine, pediatric or pediatric/adolescent dosage Francheska Briggs PT Work Phone: [facility] Work Phone: 09-21-2002 hepatitis B vaccine, pediatric or pediatric/adolescent dosage Francheska Briggs PT Work Phone: [facility] Work Phone: 09-21-2002 poliovirus vaccine, inactivated Francheska Briggs PT Work Phone: [facility] Work Phone: 06-28-2002 diphtheria, tetanus toxoids and acellular pertussis vaccine Francheska Briggs PT Work Phone: [facility] Work Phone: 06-28-2002 haemophilus influenz ae type b vaccine, HbOC conjugate Francheska Briggs PT Work Phone: [facility] Work Phone: 06-28-2002 pneumococcal conjuga te vaccine, 7 valent Francheska Briggs PT Work Phone: [facility] Work Phone: 04-27-2002 diphtheria, tetanus toxoids and acellular pertussis vaccine Francheska Briggs PT Work Phone: [facility] Work Phone: 04-27-2002 haemophilus influenz ae type b vaccine, HbOC conjugate Francheska Briggs PT Work Phone: [facility] Work Phone: 04-27-2002 pneumococcal conjuga te vaccine, 7 valent Francheska Briggs PT Work Phone: [facility] Work Phone: 04-27-2002 poliovirus vaccine, inactivated Francheska Briggs PT Work Phone: [facility] Work Phone: 03-29-2002 pneumococcal conjuga te vaccine, 7 valent Francheska Briggs PT Work Phone: [facility] Work Phone: 03-04-2002 diphtheria, tetanus toxoids and acellular pertussis vaccine Francheska Briggs PT Work Phone: [facility] Work Phone: 03-04-2002 haemophilus influenz ae type b vaccine, HbOC conjugate Francheska Briggs PT Work Phone: [facility] Work Phone: 03-04-2002 poliovirus vaccine, inactivated Francheska Briggs PT Work Phone: [facility] Work Phone: 02-02-2002 hepatitis B vaccine, pediatric or pediatric/adolescent dosage Francheska Briggs PT Work Phone: [facility] Work Phone: Payers Date Payer Category Payer Self-pay [id number] 2023 Unknown [id number] 2019 Unknown MMO MMO TPA [id number] 2019-Present [address] [place] [address] PPO [id number] 2016 Unknown [id number] 2001 Unknown [id number] 1973 Unknown [id number] Unknown [id number] Unknown [id number] Unknown [id number] Unknown [id number] Social History Date Type Detail Facility Start: 06-16-2023 End: 07-21-2023 Tobacco smoking status NHIS Never smoked tobacco [facility] Start: 03-24-2020 Alcohol intake Current non-dr erickson of alcohol (finding) [facility] Start: 2001 Sex Assigned At Not on file C [facility] Start: 11-17-2021 End: 11-27-2021 Exposure to SARS-CoV-2 (event) Not sure [facility] Start: 12-11-2021 End: 10-18-2022 Tobacco smoking status NHIS Unknown if ever smoked [facility] Start: 2001 Sex Assigned At Female W [facility] Start: 08-31-2024 Sex Female (finding) [facility] Goals Date Patient Goal Desired Activity /State Mental Status Date Assessment Result Facility 05-27-2022 Cognitive function Voice/Name [facility] Work Phone: Clinical Notes 11-22-2017 to 06-08-2024 Note Date & Type Note Facility 06-08-2024 Evaluation note Diagnosis Onset Date Resolution Acid reflux chronic May 8:24am Constipation chronic May 8:24am Acute pharyngitis acute August 072024 7:09am [facility] Work Phone: 1(554) 408-447702-13-2024 Note. MICRO - Microbiology PROCEDURE: Affirm Pathogens DNA Direct Probe [*1] SOURCE: Vaginal Fluid BODY SITE: Cervix COLLECTED DATE/TIME: 07/21/2023 13:33 EST RECEIVED DATE/TIME: 07/21/2023 19:54 EST START DATE/TIME: 07/21/2023 19:54 EST FREE TEXT SOURCE: FINAL REPORTS Final Report [] Verified Date/Time/Personnel: 07/22/2023 11:38 EST Gardnerella vaginalis DNA Probe Positive Linda species DNA Probe Positive Trichomonas vaginalis DNA Probe Negative Performing Locations *1: This test was performed at: [address], [facility] , [facility] ([place])01-01-2022 NoteHNO ID: [id number] Author: Francheska Briggs, PT Service: ? Author Type: Physical Therapist Type: Progress Notes Filed: 01/01/2022 7:43 AM Note Text: Episode Visit Count: 4 Therapist That Will Oversee The Plan Of Care: Francheska Briggs Start of Care Date: 11/20/21 Onset Date: 11/20/20 Patient Identified by Name and Date of : Yes REHABILITATION AND SPORTS THERAPY PHYSICAL THERAPY DISCONTINUANCE OF CARE PLAN OF CARE UPDATE: Assessment: Sosa Oliver is discontinued from Physical Therapy services due to patient and therapist mutually agreeing to discontinue current plan of care due to patient leaving the area soon to return to college and current level of progress . Patient was seen for 4 visits from Start of Care Date: 11/20/21 to 01/01/2022 and treatment included: Therapeutic exercise, Manual therapy and Self-alf management. Goals for Episode of Care: created on 11/20/21 Updated on: 01/01/2022 [place] in home exercise program.-MET Patient will increase flexibility of B hamstrings to WNL to decrease pain.-MET Pelvic Pain: Patient reports painfree intercourse-PROGRESSING Patient displays decreased muscle spasms in pelvic floor to allow for decreased pain levels-MET Patient demonstrates ability to perform diaphragmatic breathing and Relaxation-MET Patient displays improved muscle dynamics of pelvic floor including ability to lengthen-MET Patient reports ability to fully empty bowels without straining-PROGRESSING Patient Goals: improve pain, improve bowel function SUBJECTIVE: Patient Reason for Visit: Pt reports some superficial pain with intercourse since last session. Pt reports some improvement in ability to empty bowels with squatty potty but still has occasional straining. Pt reports good compliance with HEP. Pt reports returning to college soon, would like today to be her last appointment due to this, feels comfortable continuing HEP on her own at home. Pain: Pain Pain Level: 0 Post Treatment Pain Post Treatment Pain Level: 0 PROMIS Scales Higher is Better 12/04/2021 12/29/2021 Phys Func - Score 57 (within normal limits) 55 (within normal limits) Phys Func - Percentile 76 % 69 % Social Roles - Score - 68 (within normal limits) Social Role - Percentile - 96 % GH Physical - Score - 50.8 (Very Good) GH Physical - Percentile - 53 % GH Mental - Score - 50.8 (Very Good) GH Mental - Percentile - 53 % Self-Eff Symptom - Score - 58 (Average) Self-Eff Symptom - Percentile - 79 % T-scores: mean of general population = 50. 5 points is clinically meaningfully difference Percentiles provide an indication of how the patient's score ranks in relation to the general population. Higher percentile rankings indicate better function/quality of life. 50th percentile is the average of the general population and indicates half of respondents had a worse score. Lower is Better 12/29/2021 Fatigue - Score 47 (within normal limits) Fatigue - Percentile 62 % T-scores: mean of general population = 50. 5 points is clinically meaningfully difference Percentiles provide an indication of how the patient's score ranks in relation to the general population. Higher percentile rankings indicate better function/quality of life. 50th percentile is the average of the general population and indicates half of respondents had a worse score. OBJECTIVE MEASURES WITH LEVEL OF FUNCTION: Pelvic Floor Pain with penetration: Superficial Difficulty evacuating / Excessive Straining: Sometimes Incomplete emptying: Sometimes Pelvic Floor Muscle Assessment Consent for pelvic assessment/testing and treatment: Patient was educated regarding pelvic floor physical therapy assessment/treatment which may include pelvic floor and girdle muscle assessment externally or internally (vaginal or rectal approach).;Patient verbalized consent for the above treatment approaches today. Patient understands they have control of the treatment and an opportunity to stop treatment at any time. Range of Motion: Normal Ability to Lengthen pelvic floor: Yes Diaphragmatic Breathing : Good Pelvic Floor Manual Assessment External Pelvic Region Tenderness/ Hyperactivity - Trunk: Lower abdominals Lower abdominals: Bilateral (1/1) External Pelvic Region Tenderness/ Hyperactivity - Lower Extremity: Adductor Adductor: Bilateral (1/) Pelvic Floor Tenderness/Hyperactivity: Tested Vaginally in Tested Vaginally in : Supine/hooklying (No tightness/tenderness noted.) LE Flexibility Flexibility: Hamstring Flexibility R Hamstring Flexibility: WNL L Hamstring Flexibility: WNL Tissue Restriction/Tenderness Scale: 1= mild, 2= moderate, 3= severe TREATMENT: Manual Therapy: 1: Reassessment 2: Gentle stretching to B pelvic floor, supine 3: MFR to B lower abdominals, supine 4: MFR to B adductors, supine 5: Discussed discharge planning Skilled Intervention: Manual skills to improve joint mobil (more content not included)...[facility]07-26-2022 History of Present illness Narrative* Francheska Briggs, PT - 01/01/2022 7:00 AM EDT Episode Visit Count: 4 Therapist That Will Oversee The Plan Of Care: Francheska Briggs Start of Care Date: 11/20/21 Onset Date: 11/20/20 Patient Identified by Name and Date of : Yes REHABILITATION AND SPORTS THERAPY PHYSICAL THERAPY DISCONTINUANCE OF CARE PLAN OF CARE UPDATE: Assessment: Sosa Oliver is discontinued from Physical Therapy services due to patient and therapist mutually agreeing to discontinue current plan of care due to patient leaving the area soon to return to college and current level of progress . Patient was seen for 4 visits from Start of Care Date: 11/20/21 to 01/01/2022 and treatment included: Therapeutic exercise, Manual therapy and Self- alf management. Goals for Episode of Care: created on 11/20/21 Updated on: 01/01/2022 [place] in home exercise program.-MET Patient will increase flexibility of B hamstrings to WNL to decrease pain.-MET Pelvic Pain: Patient reports painfree intercourse-PROGRESSING Patient displays decreased muscle spasms in pelvic floor to allow for decreased pain levels-MET Patient demonstrates ability to perform diaphragmatic breathing and Relaxation-MET Patient displays improved muscle dynamics of pelvic floor including ability to lengthen-MET Patient reports ability to fully empty bowels without straining-PROGRESSING Patient Goals: improve pain, improve bowel function SUBJECTIVE: Patient Reason for Visit: Pt reports some superficial pain with intercourse since last session. Pt reports some improvement in ability to empty bowels with squatty potty but still has occasional straining. Pt reports good compliance with HEP. Pt reports returning to college soon, would like today to be her last appointment due to this, feels comfortable continuing HEP on her own at home. Pain: Pain Pain Level: 0 Post Treatment Pain Post Treatment Pain Level: 0 PROMIS Scales Higher is Better 12/04/2021 12/29/2021 Phys Func - Score 57 (within normal limits) 55 (within normal limits) Phys Func - Percentile 76 % 69 % Social Roles - Score - 68 (within normal limits) Social Role - Percentile - 96 % GH Physical - Score - 50.8 (Very Good) GH Physical - Percentile - 53 % GH Mental - Score - 50.8 (Very Good) GH Mental - Percentile - 53 % Self-Eff Symptom - Score - 58 (Average) Self-Eff Symptom - Percentile - 79 % T-scores: mean of general population = 50. 5 points is clinically meaningfully difference Percentiles provide an indication of how the patient's score ranks in relation to the general population. Higher percentile rankings indicate better function/quality of life. 50th percentile is the average of the general population and indicates half of respondents had a worse score. Lower is Better 12/29/2021 Fatigue - Score 47 (within normal limits) Fatigue - Percentile 62 % T-scores: mean of general population = 50. 5 points is clinically meaningfully difference Percentiles provide an indication of how the patient's score ranks in relation to the general population. Higher percentile rankings indicate better function/quality of life. 50th percentile is the average of the general population and indicates half of respondents had a worse score. OBJECTIVE MEASURES WITH LEVEL OF FUNCTION: Pelvic Floor Pain with penetration: Superficial Difficulty evacuating / Excessive Straining: Sometimes Incomplete emptying: Sometimes Pelvic Floor Muscle Assessment Consent for pelvic assessment/testing and treatment: Patient was educated regarding pelvic floor physical therapy assessment/treatment which may include pelvic floor and girdle muscle assessment externally or internally (vaginal or rectal approach).;Patient verbalized consent for the above treatment approaches today. Patient understands they have control of the treatment and an opportunity to stop treatment at any time. Range of Motion: Normal Ability to Lengthen pelvic floor: Yes Diaphragmatic Breathing : Good Pelvic Floor Manual Assessment External Pelvic Region Tenderness/ Hyperactivity - Trunk: Lower abdominals Lower abdominals: Bilateral (1/) External Pelvic Region Tenderness/ Hyperactivity - Lower Extremity: Adductor Adductor: Bilateral (1/) Pelvic Floor Tenderness/Hyperactivity: Tested Vaginally in Tested Vaginally in : Supine/hooklying (No tightness/tenderness noted.) LE Flexibility Flexibility: Hamstring Flexibility R Hamstring Flexibility: WNL L Hamstring Flexibility: WNL Tissue Restriction/Tenderness Scale: 1= mild, 2= moderate, 3= severe TREATMENT: Manual Therapy: 1: Reassessment 2: Gentle stretching to B pelvic floor, supine 3: MFR to B lower abdominals, supine 4: MFR to B adductors, supine 5: Discussed discharge planning Skilled Intervention: Manual skills to improve joint mobility, ROM, and decrease pain. Utilized anatomy knowledge of the therapist, and assessment of patient's response to intervention. Billing Manual TherapyTreatment Minutes: 39 Total Treatment Time Minutes (timed/untimed): 39 Francheska Briggs PT [facility] NoteHNO ID: [id number] Author: Francheska Briggs PT Service: ? Author Type: Physical Therapist Type: Progress Notes Filed: 12/04/2021 7:37 AM Note Text: Episode Visit Count: 3 Therapist That Will Oversee The Plan Of Care: Francheska Briggs Start of Care Date: 11/20/21 Onset Date: 11/20/20 Patient Identified by Name and Date of : Yes REHABILITATION AND SPORTS THERAPY PHYSICAL THERAPY TREATMENT NOTE ASSESSMENT: Sosa Oliver tolerated the session with no issues. She demonstrated improvements in pelvic pain during intercourse, difficulty with unchanged bowel function. The patient will continue to benefit from ongoing skilled physical therapy to progress toward set goals. PLAN FOR NEXT VISIT: continue manual work SUBJECTIVE: Patient Reason for Visit: Pt reports no pelvic pain during intercourse. Pt reports no change in bowel function, continues to strain despite using toileting techniques. Pt reports good compliance with HEP. Pain: Pain Pain Level: 0 Post Treatment Pain Post Treatment Pain Level: 0 OBJECTIVE MEASURES WITH LEVEL OF FUNCTION: Pelvic Floor Difficulty evacuating / Excessive Straining: Yes Incomplete emptying: Sometimes Pelvic Floor Muscle Assessment Consent for pelvic assessment/testing and treatment: Patient was educated regarding pelvic floor physical therapy assessment/treatment which may include pelvic floor and girdle muscle assessment externally or internally (vaginal or rectal approach).;Patient verbalized consent for the above treatment approaches today. Patient understands they have control of the treatment and an opportunity to stop treatment at any time. Pelvic Floor Manual Assessment External Pelvic Region Tenderness/ Hyperactivity - Trunk: Lower abdominals Lower abdominals: Bilateral (/) External Pelvic Region Tenderness/ Hyperactivity - Lower Extremity: Adductor Adductor: Bilateral (/) Pelvic Floor Tenderness/Hyperactivity: Tested Vaginally in Tested Vaginally in : Supine/hooklying Superficial transverse perineal: Bilateral (06/09, L>R) Deep transverse perineal: Bilateral (06/09, L>R) Tissue Restriction/Tenderness Scale: 1= mild, 2= moderate, 3= severe TREATMENT: Therapeutic Exercise: 1: *supine hip flexor stretch, [id number] each 2: *BKTC stretch, 9t41vbp 3: *happy baby stretch, [id number] Skilled Intervention: Patient was educated in proper exercise technique and purpose for exercises. Reviewed and educated patient on additions/changes for home exercise program as above (*). Skilled judgment was provided in selection of appropriate interventions. Provided written instruction for home exercise program to facilitate proper performance and compliance. Manual Therapy: 1: Gentle stretching to B pelvic floor, supine 2: MFR to B lower abdominals, supine 3: MFR to B adductors, supine 4: *self-colon massage, proper direction for bowel health Skilled Intervention: Manual skills to improve joint mobility, ROM, and decrease pain. Utilized anatomy knowledge of the therapist, and assessment of patient's response to intervention. Billing Therapeutic Exercise Treatment Minutes: 12 Manual TherapyTreatment Minutes: 28 Total Treatment Time Minutes (timed/untimed): 40 Francheska Briggs [facility]06-28-2022 History of Present illness Narrative* Francheska Briggs, PT - 12/04/2021 6:55 AM EDT Episode Visit Count: 3 Therapist That Will Oversee The Plan Of Care: Francheska Briggs Start of Care Date: 11/20/21 Onset Date: 11/20/20 Patient Identified by Name and Date of : Yes REHABILITATION AND SPORTS THERAPY PHYSICAL THERAPY TREATMENT NOTE ASSESSMENT: Sosa Oliver tolerated the session with no issues. She demonstrated improvements in pelvic pain during intercourse, difficulty with unchanged bowel function. The patient will continue to benefit from ongoing skilled physical therapy to progress toward set goals. PLAN FOR NEXT VISIT: continue manual work SUBJECTIVE: Patient Reason for Visit: Pt reports no pelvic pain during intercourse. Pt reports no change in bowel function, continues to strain despite using toileting techniques. Pt reports good compliance with HEP. Pain: Pain Pain Level: 0 Post Treatment Pain Post Treatment Pain Level: 0 OBJECTIVE MEASURES WITH LEVEL OF FUNCTION: Pelvic Floor Difficulty evacuating / Excessive Straining: Yes Incomplete emptying: Sometimes Pelvic Floor Muscle Assessment Consent for pelvic assessment/testing and treatment: Patient was educated regarding pelvic floor physical therapy assessment/treatment which may include pelvic floor and girdle muscle assessment externally or internally (vaginal or rectal approach).;Patient verbalized consent for the above treatment approaches today. Patient understands they have control of the treatment and an opportunity to stop treatment at any time. Pelvic Floor Manual Assessment External Pelvic Region Tenderness/ Hyperactivity - Trunk: Lower abdominals Lower abdominals: Bilateral (1/1) External Pelvic Region Tenderness/ Hyperactivity - Lower Extremity: Adductor Adductor: Bilateral (1/1) Pelvic Floor Tenderness/Hyperactivity: Tested Vaginally in Tested Vaginally in : Supine/hooklying Superficial transverse perineal: Bilateral (1/1, L>R) Deep transverse perineal: Bilateral (1/1, L>R) Tissue Restriction/Tenderness Scale: 1= mild, 2= moderate, 3= severe TREATMENT: Therapeutic Exercise: 1: *supine hip flexor stretch, [id number] each 2: *BKTC stretch, 7r18iiv 3: *happy baby stretch, [id number] Skilled Intervention: Patient was educated in proper exercise technique and purpose for exercises. Reviewed and educated patient on additions/changes for home exercise program as above (*). Skilled judgment was provided in selection of appropriate interventions. Provided written instruction for home exercise program to facilitate proper performance and compliance. Manual Therapy: 1: Gentle stretching to B pelvic floor, supine 2: MFR to B lower abdominals, supine 3: MFR to B adductors, supine 4: *self-colon massage, proper direction for bowel health Skilled Intervention: Manual skills to improve joint mobility, ROM, and decrease pain. Utilized anatomy knowledge of the therapist, and assessment of patient's response to intervention. Billing Therapeutic Exercise Treatment Minutes: 12 Manual TherapyTreatment Minutes: 28 Total Treatment Time Minutes (timed/untimed): 40 Francheska Briggs PT documented in this encounterP[facility]06-21-[facility]22 NoteHNO ID: [id number] Author: Francheska Briggs PT Service: ? Author Type: Physical Therapist Type: Progress Notes Filed: 11/27/2021 10:24 AM Note Text: Episode Visit Count: 2 Therapist That Will Oversee The Plan Of Care: Francheska Briggs Start of Care Date: 11/20/21 Onset Date: 11/20/20 Patient Identified by Name and Date of : Yes REHABILITATION AND SPORTS THERAPY PHYSICAL THERAPY TREATMENT NOTE ASSESSMENT: Sosa Oliver tolerated the session with no issues. She demonstrated improvements in pelvic pain during intercourse per patient report. The patient will continue to benefit from ongoing skilled physical therapy to progress toward set goals. PLAN FOR NEXT VISIT: progress stretches, internal/external manual work SUBJECTIVE: Patient Reason for Visit: Pt reports no pain with intercourse since last session. Pt reports good compliance with HEP. Pain: Pain Pain Level: 0 Post Treatment Pain Post Treatment Pain Level: 0 OBJECTIVE MEASURES WITH LEVEL OF FUNCTION: Pelvic Floor Pain with penetration: No Pelvic Floor Muscle Assessment Consent for pelvic assessment/testing and treatment: Patient was educated regarding pelvic floor physical therapy assessment/treatment which may include pelvic floor and girdle muscle assessment externally or internally (vaginal or rectal approach).;Patient verbalized consent for the above treatment approaches today. Patient understands they have control of the treatment and an opportunity to stop treatment at any time. Pelvic Floor Manual Assessment External Pelvic Region Tenderness/ Hyperactivity - Trunk: Lower abdominals Lower abdominals: Bilateral (1/1) External Pelvic Region Tenderness/ Hyperactivity - Lower Extremity: Adductor Adductor: Bilateral (1/1, L>R) Tissue Restriction/Tenderness Scale: 1= mild, 2= moderate, 3= severe TREATMENT: Therapeutic Exercise: 1: Reviewed diaphragmatic breathing with supine adductor stretch 2: *piriformis stretch, 1t15tgr each 3: *supine 90/90 hamstring stretch, 9b35xpw each 4: *LTR, 0h11tms each Skilled Intervention: Patient was educated in proper exercise technique and purpose for exercises. Reviewed and educated patient on additions/changes for home exercise program as above (*). Skilled judgment was provided in selection of appropriate interventions. Provided written instruction for home exercise program to facilitate proper performance and compliance. Manual Therapy: 1: MFR to B lower abdominals, supine 2: MFR to B adductors, supine Skilled Intervention: Manual skills to improve joint mobility, ROM, and decrease pain. Utilized anatomy knowledge of the therapist, and assessment of patient's response to intervention. Billing Therapeutic Exercise Treatment Minutes: 15 Manual TherapyTreatment Minutes: 25 Total Treatment Time Minutes (timed/untimed): 40 Francheska Briggs [facility]06-21-2022 History of Present illness Narrative* Francheska Briggs, PT - 11/27/2021 9:43 AM EDT Episode Visit Count: 2 Therapist That Will Oversee The Plan Of Care: Francheska Briggs Start of Care Date: 11/20/21 Onset Date: 11/20/20 Patient Identified by Name and Date of : Yes REHABILITATION AND SPORTS THERAPY PHYSICAL THERAPY TREATMENT NOTE ASSESSMENT: Sosa Oliver tolerated the session with no issues. She demonstrated improvements in pelvic pain during intercourse per patient report. The patient will continue to benefit from ongoing skilled physical therapy to progress toward set goals. PLAN FOR NEXT VISIT: progress stretches, internal/external manual work SUBJECTIVE: Patient Reason for Visit: Pt reports no pain with intercourse since last session. Pt reports good compliance with HEP. Pain: Pain Pain Level: 0 Post Treatment Pain Post Treatment Pain Level: 0 OBJECTIVE MEASURES WITH LEVEL OF FUNCTION: Pelvic Floor Pain with penetration: No Pelvic Floor Muscle Assessment Consent for pelvic assessment/testing and treatment: Patient was educated regarding pelvic floor physical therapy assessment/treatment which may include pelvic floor and girdle muscle assessment externally or internally (vaginal or rectal approach).;Patient verbalized consent for the above treatment approaches today. Patient understands they have control of the treatment and an opportunity to stop treatment at any time. Pelvic Floor Manual Assessment External Pelvic Region Tenderness/ Hyperactivity - Trunk: Lower abdominals Lower abdominals: Bilateral (/) External Pelvic Region Tenderness/ Hyperactivity - Lower Extremity: Adductor Adductor: Bilateral (06/09, L>R) Tissue Restriction/Tenderness Scale: 1= mild, 2= moderate, 3= severe TREATMENT: Therapeutic Exercise: 1: Reviewed diaphragmatic breathing with supine adductor stretch 2: *piriformis stretch, 8d80pdc each 3: *supine 90/90 hamstring stretch, 5h60ogp each 4: *LTR, 8f88glq each Skilled Intervention: Patient was educated in proper exercise technique and purpose for exercises. Reviewed and educated patient on additions/changes for home exercise program as above (*). Skilled judgment was provided in selection of appropriate interventions. Provided written instruction for home exercise program to facilitate proper performance and compliance. Manual Therapy: 1: MFR to B lower abdominals, supine 2: MFR to B adductors, supine Skilled Intervention: Manual skills to improve joint mobility, ROM, and decrease pain. Utilized anatomy knowledge of the therapist, and assessment of patient's response to intervention. Billing Therapeutic Exercise Treatment Minutes: 15 Manual TherapyTreatment Minutes: 25 Total Treatment Time Minutes (timed/untimed): 40 Francheska Briggs PT documented in this encounterPomerene [facility]06-14-2022 NoteHNO ID: [id number] Author: Francheska Briggs PT Service: ? Author Type: Physical Therapist Type: Progress Notes Filed: 11/20/2021 9:34 AM Note Text: Episode Visit Count: 1 Therapist That Will Oversee The Plan Of Care: Francheska Briggs Start of Care Date: 11/20/21 Onset Date: 11/20/20 Patient Identified by Name and Date of : Yes REHABILITATION AND SPORTS THERAPY PHYSICAL THERAPY EVALUATION PLAN OF CARE: Assessment: Sosa Oliver presents with chief complaint of pelvic pain that interferes with altered sexual function;bowel function;physical activities . She presents with impairments in decreased pelvic floor ROM; pelvic floor muscle tightness/tenderness; decreased flexibility in B hamstrings; impaired bowel and sexual function. PROMIS? (Patient-Reported Outcomes Measurement Information System) scores were unable to be reviewed. Prognosis for therapy is Good due to: current objective clinical presentation . She will benefit from skilled therapy services to meet the goals established for this plan of care as noted below. Goals for Episode of Care: created on 11/20/21 through 02/18/22 [place] in home exercise program. Patient will increase flexibility of B hamstrings to WNL to decrease pain. Pelvic Pain: Patient reports painfree intercourse Patient displays decreased muscle spasms in pelvic floor to allow for decreased pain levels Patient demonstrates ability to perform diaphragmatic breathing and relaxation Patient displays improved muscle dynamics of pelvic floor including ability to lengthen Patient reports ability to fully empty bowels without straining Patient Goals: improve pain, improve bowel function Planned Interventions, Frequency, and Duration: Current Frequency: 1x/week Duration: 4 weeks (reassess at 4 weeks and progress as indicated) Total Number of Visits Planned: 4 Planned Treatment Interventions: Therapeutic exercise (13174);Manual therapy (18257);Self-alf management (61163);Patient/Family/Caregiver Education PLAN FOR NEXT VISIT: progress stretches, assess external connective tissue Patient demonstrates good understanding of plan of care and treatment. The above goals and plan of care were discussed and agreed upon by patient/family. SUBJECTIVE: Pt reports pelvic pain with wearing tampons, having intercourse. Pt reports pain began about a year ago. 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 PAST MEDICAL HISTORY Diagnosis Date - Cellulitis and abscess of leg 01-13-2016 - PM - PAST MEDICAL HISTORY OF 2008 normal color vision PAST SURGICAL HISTORY Procedure Laterality Date - NONE Intake Information: Prescription present Previous Treatment: None Falls Interview: No positive findings with falls interview Aquatic Screen: No Pain: Pain Pain Level: 0 (4/10 at worst) Pain Location: Vaginal Description: Sharp;Sore Frequency: Intermittent Post Treatment Pain Post Treatment Pain Level: 0 PROMIS Scales T-scores: mean of general population = 50. 5 points is clinically meaningfully difference Percentiles provide an indication of how the patient's score ranks in relation to the general population. Higher percentile rankings indicate better function/quality of life. 50th percentile is the average of the general population and indicates half of respondents had a worse score. T-scores: mean of general population = 50. 5 points is clinically meaningfully difference Percentiles provide an indication of how the patient's score ranks in relation to the general population. Higher percentile rankings indicate better function/quality of life. 50th percentile is the average of the general population and indicates half of respondents had a worse score. OBJECTIVE MEASURES WITH LEVEL OF FUNCTION: Pelvic Floor Control Method: control pill Pregnancies: 0 Pain with penetration: Superficial;Pain during intercourse;Pain after intercourse;Avoids tampon use;Pain with internal medical exam Urinary/Bowel History : Urinary History;Bowel History Difficulty starting stream: No Incomplete emptying: No Stress Incontinence: No Urgency: No Nocturia (times per night): 0 Daytime Frequency (hours): 2-4 Fluid Intake: Water (8 oz measurements) Water : 4-6 Difficulty evacuating / Excessive Straining: Yes Incomplete emptying: Sometimes Bowel Movement Frequency: 3x/week Fecal incontinence: No Pelvic Floor Muscle Assessment Consent for pelvic assessment/testing and treatment: Patient was educated regarding pelvic floor physical therapy assessment/cat (more content not included)...[facility]06-16-2018 History of Past illness Narrative* Problem Noted Date Resolved Date Low vitamin D level 11/22/2017 12/16/2018 Constipation 11/22/2017 12/16/2018 documented as of this encounter (statuses as of 11/27/2021) [facility] History of Past illness Narrative* Problem Noted Date Resolved Date Low vitamin D level 11/22/2017 12/16/2018 Constipation 11/22/2017 12/16/2018 documented as of this encounter (statuses as of 12/04/2021) [facility] History of Past illness Narrative* Problem Noted Date Resolved Date Low vitamin D level 11/22/2017 12/16/2018 Constipation 11/22/2017 12/16/2018 documented as of this encounter (statuses as of 01/01/2022) [facility] [place] [facility] No data available for this section [facility] Evaluation note* Diagnosis Muscle tightness- Primary Unspecified disorder of muscle, ligament, and fascia Dyspareunia, psychogenic documented in this encounter [facility] [place] [facility] Diagnosis Muscle tightness- Primary Unspecified disorder of muscle, ligament, and fascia Dyspareunia, psychogenic [facility] Diagnosis Muscle tightness- Primary Unspecified disorder of muscle, ligament, and fascia Dyspareunia, psychogenic [facility] Diagnosis Onset Date Resolution Status Cystitis acute [facility] Work Phone: Evaluation noteNo assessment information available [facility] Work Phone: Evaluation note* Diagnosis Onset Date Resolution Status Acute pharyngitis acute Contact with or suspected ex posure to other viral communicable disease acute Acid reflux chronic Constipation chronic [facility] Work Phone: Hospital Discharge instructions Additional Instructions Implant Used?: [facility] Work Phone: Hospital Discharge instructions No data available for this section [facility] Progress note No data available for this section [facility] Reason for referral (narrative)No reason for [facility] Work [facility]: Summary Purpose Family History Relationship Condition Age at Onset Recorded Date/T jessica Not Specified No pertinent family history Unknown Advance Directives Documents on File Type Date Recorded 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 Advance Directive(s) 02/21/2020 1:41 PM Advance Directive Response Recorded Date/ Time Living Will No October 24, 2015 4 :58am 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 No May 20, 2022 3:15pm Chief Complaint and Reason for Visit Chief Complaint CONCERNED FOR UTI J45.20 Mild intermittent asthma, uncomplicated J45.20 Mild intermittent asthma, uncomplicated Reason for Visit Cystitis Chief Complaint DIAGNOSTIC LAPAROSCO PY OVARIAN CYST POSS OOPHOR Chief Complaint SORE THROAT/YOUNG/COUGH /FATIGUE Consult EORDERS E ORDER EORDER/SITZ 2 Reason for Visit Acute pharyngitis Contact with or suspected exposure to other viral communicable disease Acid reflux Constipation Chief Complaint Admit Date 6 M FU June 08, 2024 8:24am CONCERN FOR STREP THROAT August 19 7:09am Reason for Visit Admit Date Acid reflux June 08, 2024 8:24am Constipation June 08, 2024 8:24am Acute pharyngitis August 19, 2024 7:0 9am Additional Source Comments INFORMATION SOURCE (unrecogn ized section and content) DATE CREATED AUTHOR 08/13/2018 [facility] DATE CREATED AUTHOR AUTHOR'S ORGANIZ ATION 06/15/2022 [facility] DATE CREATED AUTHOR AUTHOR'S ORGANIZ ATION 07/29/2023 [facility] ([place]) DATE CREATED AUTHOR AUTHOR'S ORGANIZ ATION 09/01/2024 [facility] Source Comments (unrecognize d section and content) In the event this informatio n is protected by the Federal Confidentiality of Alcohol and Drug Abuse Patient Records regulations: The Federal rules restrict any use of the information to criminally investigate or prosecute any alcohol or drug abuse patient.[facility] the event this information is protected by the Federal Confidentiality of Alcohol and Drug Abuse Patient Records regulations: The Federal rules restrict any use of the information to criminally investigate or prosecute any alcohol or drug abuse patient.[facility] the event this information is protected by the Federal Confidentiality of Alcohol and Drug Abuse Patient Records regulations: The Federal rules restrict any use of the information to criminally investigate or prosecute any alcohol or drug abuse patient.[facility] Reason for Visit (unrecogniz ed section and content) Reason Comments Physical Therapy Specialty Diagnoses / Procedures Referred By Contac t Referred To Contact Physical Therapy / PHYSICAL THERAPY Diagnoses Pelvic Floor, Pt. hand carrying referral Procedures NEW RS PT PELVIC PAIN/INCONT Self Francheska Briggs, PT [address] [facility] [place] [address] Referral ID Status Reason Start Date Expiration Date V isits Requested Visits Authorized [id number] Authorized 06/09/2021 06/08/2022 99 99 Reason Comments PT Discharge Specialty Diagnoses / Procedures Referred By Contac t Referred To Contact Physical Therapy / PHYSICAL THERAPY Diagnoses Pelvic Floor, Pt. hand carrying referral Procedures NEW RS PT PELVIC PAIN/INCONT Self, Francheska Monte, PT [address] [place] [address] Care Teams (unrecognized sec tion and content) Car Spotter Relationship Specialty Start Date End Date Vernon Beck MD [address] [place] [address] PCP - General 03/30/02 Car Spotter Relationship Specialty Start Date End Date Vernon Beck MD [address] [place] [address] PCP - General 03/30/02 Car Spotter Relationship Specialty Start Date End Date Vernon Beck MD [address] [place] [address] PCP - General 03/30/02 Team Status: Active Member Role Status Dates Dr. Vernon Beck MD Family Provider Active Dr. Shelly Topete MD Primary Care Provider Active Team Status: Inactive Member Role Status Dates Dr. Shelly Topete MD Primary Care Provider, [facility] Provider Active Dr. Aj Huang DO Attending Provider Active Team Status: Inactive Member Role Status Dates Dr. Shelly Topete MD Primary Care Provider, Referrin g Provider Active MARIA M Mckenzie Attending Provider Active Team Status: Inactive Member Role Status Dates Dr. Shelly Topete MD Primary Care Provider Active Dr. Aj Huang DO Attending Provider, Referring Provider Active Team Status: Active Member Role Status Dates Dr. Shelly Topete MD Primary Care Provider Active Dr. Aj Huang DO Attending Provider, Referring Provider Active Team Status: Inactive Member Role Status Dates Dr. Shelly Topete MD Primary Care Provider Active Start: June 08, 2024 End: June 08, 2024 Dr. Shelly Topete MD Referring Provider Active Start: June 08, 2024 End: June 08, 2024 Dr. Aj Huang DO Attending Provider Active Start: June 08, 2024 End: June 08, 2024 Team Status: Inactive Member Role Status Dates Dr. Shelly Topete MD Primary Care Provider Active Start: August 19, 2024 End: August 19, 2024 Dr. Shelly Topete MD Referring Provider Active Start: August 19, 2024 End: August 19, 2024 MARIA M Mckenzie Attending Provider Active Sta rt: August 19, 2024 End: August 19, 2024 Team Status: Inactive Member Role Status Dates Dr. Shelly Topete MD Primary Care Provider Active Start: August 19, 2024 End: August 19, 2024 MARIA M Mckenzie Attending Provider Active Sta rt: August 19, 2024 End: August 19, 2024 MARIA M Mckenzie Referring Provider Active Sta rt: August 19, 2024 End: August 19, 2024 Goals (unrecognized section and content) Goals may be documented in a n alternate sectionGoals may be documented in an alternate section No data available for this sectionGoals may be documented in an alternate section FOR RECORDS PERTAINING TO PATIENTS WHO ARE OR HAVE BEEN ENROLLED IN A CHEMICAL DEPENDENCY/SUBSTANCEABUSE PROGRAM, SOME INFORMATION MAY BE OMITTED. This clinical summary was aggregated from multiple sources. Caution should be exercised in using it in the provision of clinical care. This summary normalizes information from multiple sources, and as a consequence, information in this document may materially change the coding, format and clinical context of patient data. In addition, data may be omitted in some cases. CLINICAL DECISIONS SHOULD BE BASED ON THE PRIMARY CLINICAL RECORDS. [facility] [employer] [facility]. provides no warranty or guarantee of the accuracy or completeness of information in this document.
[2025-01-01] MEDS: Lidocaine 2% /Epi 1:100 (20ml) 20 ML VIAL INFILT (21:16)
--- NOTE | 2025-01-01 21:39 | EDS_ITS ---
HPI <MARIA M Mejia - Last Filed: 01/01/25 21:45> History of Present Illness Chief Complaint: Other, Pain/Inj Narrative Narrative: Patient presented with concerns for pain and swelling to her gluteal cleft she has had over the last several days. She denies a history of pilonidal cysts or abscesses. She has had no fevers or chills, she reports that she is healthy otherwise. She reports that it has been actively draining on its own off and on over the past few days. She denies any nausea or vomiting. PFSH <MARIA M Mejia - Last Filed: 01/01/25 21:45> PFSH Medical History Postauricular lymphadenitis Pelvic pain Wears glasses Anxiety Anemia Migraine headache Loss of consciousness Narcolepsy Non-smoker Depression Asthma Pharyngitis URI (upper respiratory infection) Urinary tract infection Influenza A Home Medications Medication Instructions Recorded Last Taken Type doxycycline hyclate 100 mg capsule 100 mg PO BID 7 day s #14 caps 01/01/25 Unknown Rx Allergy/AdvReac Type Severity Reaction Status Date / Time No Known Allergies Allergy Verified 01/01/25 20:17 Family History Other No pertinent family history Surgical History H/O laparoscopy No pertinent past surgical history Social History Smoking Status: Never smoker alcohol intake: never ROS <MARIA M Mejia - Last Filed: 01/01/25 21:45> ROS ED Constitutional Constitutional ED: Denies chills or fever(s) Cardiovascular Cardiovascular: Denies chest pain Respiratory/Chest Respiratory/Chest: Denies dyspnea Gastrointestinal Gastrointestinal: Denies abdominal pain, nausea or vomiting Integumentary Reports abscess Neurologic Neurologic: Denies weakness EXAM <MARIA M Mejia - Last Filed: 01/01/25 21:45> Physical Exam Const Vital Signs: 01/01/25 20:17 Temperature 98.6 F Temperature Source Oral Pulse Rate 88 Respiratory Rate 14 Blood Pressure 120/79 Blood Pressure Mean 92 Pulse Ox 100 Oxygen Delivery Method Room Air Positive well nourished, well developed and no apparent distress General Appearance ED: well developed HEENT Reports normocephalic and head/scalp atraumatic Mouth ED: Yes moist mucous membranes normal Eyes PERRL and EOMs intact bilaterally Neck full ROM and supple Chest Wall inspection of chest normal Resp normal respiratory effort and clear to auscultation bilaterally Cardio regular rate and regular rhythm GI soft to palpation, non-tender, non-distended and no masses Back/Spine normal ROM and normal to inspection Extremity normal to inspection and full ROM Neuro oriented x3, CN's II-XII intact bilaterally, moves all extremities, no focal motor deficits and no sensory deficits noted Sensorium / Orientation: awake and alert Psych mental status grossly normal and thought process normal Skin Skin Narrative: Infected pilonidal cyst with minimal surrounding erythema, there is a small area of fluctuance and induration. <Dr. Elmer Diaz, - Last Filed: 01/01/25 22:34> Physical Exam Const Vital Signs: 01/01/25 20:17 Temperature 98.6 F Temperature Source Oral Pulse Rate 88 Respiratory Rate 14 Blood Pressure 120/79 Blood Pressure Mean 92 Pulse Ox 100 Oxygen Delivery Method Room Air MDM <MARIA M Mejia - Last Filed: 01/01/25 21:45> [facility] Narrative Medical decision making narrative: Patient presenting today with an infected pilonidal cyst with a small abscess. She is otherwise nontoxic-appearing. On exam she has a small area of fluctuance and induration, therefore ultrasound machine was used to further evaluate the cyst and confirms that there is an abscess that has formed. She was agreeable to undergoing an I&D. She was given Tylenol here for pain and started on doxycycline. She tolerated the procedure well. She feels improved. Recommended she perform sitz bath's at home and wound care instructions were discussed with her. I did refer her to general surgery. Return instructions discussed, she understands reasons to return to the emergency department. She will be discharged home in stable condition. <Dr. Elmer Diaz, - Last Filed: 01/01/25 22:34> [facility] Treatment and Re-Evaluation :: ED attending note: I evaluated the patient in conjunction with the LOCO. I agree with his/her statements and above findings. I have personally performed a face to face assessment of the patient and have reviewed the LOCO Note. I performed a substantive portion of the visit including all aspects of the following. I personally saw the patient performed chart review, physical exam, reviewed labs, imaging (if obtained), and formulated a treatment and management plan. This note was generated with [employer] dictation software. It may contain incorrect words, spelling, and punctuation that were not noted in review of the chart prior to signing. Procedures <MARIA M Mejia - Last Filed: 01/01/25 21:45> Other Procedures Procedure(s): Pilonidal cyst was cleaned with Betadine and anesthetized with 2% lidocaine with epinephrine, a small incision was made with a #11 blade, purulent discharge was expelled from the abscess, loculations were broken with curved hemostats, wound was bandaged. Discharge Plan Triage Chief Complaint: Other, Pain/Inj ED Midlevel Provider: Jannette Irving ED Provider: Elmer Diaz Dx/Rx/DC Orders Clinical Impression: Cyst, pilonidal, with abscess Instructions: ED Cyst Pilonidal Infec Abx Tx Prescriptions: New doxycycline hyclate 100 mg capsule 100 mg PO BID 7 Days Qty: 14 0RF Primary Care Provider: Shelly Topete Referrals: Shelly Topete MD [Primary Care Provider] - Elena Rojas MD [Med Staff - Active Staff] - 5-7 Days Activity Restrictions/Additional Instructions: Perform sitz bath's daily, return for any worsening symptoms, fevers, chills or if you have any other concerns. Print Language: Tristanian Disposition Disposition: Home, Self Care Discharge Date/Time: 01/01/25 22:15
== END 2025-01-01 22:15 | disposition home or self-care (01) ==
PROVIDERS: Emergency Provider Emergency Medicine; PCP Family Medicine; Visit Provider Emergency Medicine
DX: L05.91 Pilonidal cyst without abscess (principal); J45.909 Unspecified asthma, uncomplicated
CPT/HCPCS: 10080; 10060; 99283

== ENCOUNTER → 2025-03-24 | Outpatient (CLI) | payer OTHER, SELFPAY | END | disposition home or self-care (01) | LOC: LABSPEC 13:06 | PROVIDERS: PCP Family Medicine; Referring Provider Physician Assistant Surgical; Visit Provider Physician Assistant Surgical | DX: J02.9 Acute pharyngitis, unspecified (principal) | CPT/HCPCS: 87070 ==